=== PATIENT | male | born 1985 | race Caucasian/White ===

== ENCOUNTER 2017-03-30 23:25 | Emergency (ER) | payer OTHER ==
[2017-03-30] MEDS ORDERED: Sodium Chloride 0.9% 1,000 ML IV ONE (23:47)
[2017-03-30] MEDS ORDERED: Albuterol/Ipratropium 3.0-0.5 MG/3 ML Neb Soln NEB ONE (23:47)
[2017-03-30] MEDS ORDERED: methylPREDNISolone Sodium Succinate 125 MG/2 ML SDV IVPUSH ONE (23:47)
--- NOTE | 2017-03-30 23:48 | EDM.PDOC ---
ED HISTORY OF PRESENT ILLNESS - General Chief Complaint: Respiratory Problem Stated Complaint: PT HAS DIFFICULTY BREATHING Time Seen by Provider: 03/30/17 23:48 Source of Information: Reports: Patient - History of Present Illness INITIAL COMMENTS - FREE TEXT/NARRATIVE: HISTORY AND PHYSICAL: History of present illness: [] Patient presents with 5 days of cough and shortness of breath, intermittent wheeze generally small in one to 2 packs of cigarettes daily over the last week he has cut down to half a pack no fever nausea vomiting chills sweats no chest pain headache dizziness or palpitation no bowel or urine symptoms No history of asthma Review of systems: As per history of present illness and below otherwise all systems reviewed and negative. Past medical history: As per history of present illness and as reviewed below otherwise noncontributory. Surgical history: As per history of present illness and as reviewed below otherwise noncontributory. Social history: No reported history of drug or alcohol abuse. Family history: As per history of present illness and as reviewed below otherwise noncontributory. Physical exam: HEENT: Atraumatic, normocephalic, pupils reactive, negative for conjunctival pallor or scleral icterus, mucous membranes moist, throat clear, neck supple, nontender, trachea midline. Lungs: Clear to auscultation, breath sounds equal bilaterally, chest nontender. Heart: S1S2, regular, negative for clicks, rubs, or JVD. Abdomen: Soft, nondistended, nontender. Negative for masses or hepatosplenomegaly. Negative for costovertebral tenderness. Pelvis: Stable nontender. Genitourinary: Deferred. Rectal: Deferred. Extremities: Atraumatic, negative for cords or calf pain. Neurovascular unremarkable. Neuro: Awake, alert, oriented. Cranial nerves II through XII unremarkable. Cerebellum unremarkable. Motor and sensory unremarkable throughout. Exam nonfocal. Diagnostics: [] Lab as below Chest 2 views Therapeutics: [] Liter normal saline bolus Solu-Medrol 125 mg IV DuoNeb Azithromycin 500 milligrams by mouth now and daily prescription for #6 tabs HFA Medrol Dosepak Impression: [] Acute bronchitis Definitive disposition and diagnosis as appropriate pending reevaluation and review of above. - Related Data Allergies/ADRs: Allergies Allergy/AdvReac Type Severity Reaction Status Date / Time No Known Allergies Allergy Verified 11/23/14 19:32 Home Meds: Home Meds . [No Known Home Meds] 03/30/17 [History] Past Medical History - Past Health History Medical/Surgical History: Denies Medical/Surgical History Social & Family History - Tobacco Use Smoking Status *Q: Current Every Day Smoker Years of Tobacco use: 8 Packs/Tins Daily: 0.2 - Caffeine Use Caffeine Use: Reports: Other - Alcohol Use Days Per Week of Alcohol Use: 0 - Recreational Drug Use Recreational Drug Use: No ED ROS GENERAL - Review of Systems Review Of Systems: ROS reveals no pertinent complaints other than HPI. ED EXAM, GENERAL - Physical Exam Exam: See Below Course - Vital Signs Last Recorded V/S: Last Vital Signs Temp 36.2 C 03/30/17 23:40 Pulse 115 H 03/30/17 23:40 Resp 22 H 03/30/17 23:40 BP 127/58 L 03/30/17 23:40 Pulse Ox 94 L 03/30/17 23:40 - Orders/Labs/Meds Orders: Active Orders 24 hr Category Date Time Status RT Aerosol Therapy [RC] ASDIRECTED Care 03/30/17 23:47 Active Chest 2V [CR] Stat Exams 03/30/17 23:47 Taken COMPREHENSIVE METABOLIC PN,CMP [CHEM] Stat Lab 03/30/17 23:55 Received Azithromycin [Zithromax] Med 03/31/17 00:48 Stat 500 mg PO NOW STA Labs: Laboratory Tests 03/30/17 Range/Units 23:55 WBC 9.00 (4.0-11.0) K/uL RBC 4.89 (4.50-5.90) M/uL Hgb 14.7 (13.0-17.0) g/dL Hct 42.5 (38.0-50.0) % MCV 86.9 (80.0-98.0) fL MCH 30.1 (27.0-32.0) pg MCHC 34.6 (31.0-37.0) g/dL RDW Std Deviation 40.7 (28.0-62.0) fl RDW Coeff of Robert 13 (11.0-15.0) % Plt Count 186 (150-400) K/uL MPV 11.40 (7.40-12.00) fL Neut % (Auto) 69.2 (48.0-80.0) % Lymph % (Auto) 14.9 L (16.0-40.0) % [place] % (Auto) 14.6 (0.0-15.0) % Eos % (Auto) 0.9 (0.0-7.0) % Baso % (Auto) 0.4 (0.0-1.5) % Neut # (Auto) 6.2 H (1.4-5.7) K/uL Lymph # (Auto) 1.3 (0.6-2.4) K/uL [place] # (Auto) 1.3 H (0.0-0.8) K/uL Eos # (Auto) 0.1 (0.0-0.7) K/uL Baso # (Auto) 0.0 (0.0-0.1) K/uL Nucleated RBC % 0.0 /100WBC Nucleated RBCs # 0 K/uL Meds: Medications Discontinued Medications Generic Name Dose Route Start Last Admin Trade Name Freq PRN Reason Stop Dose Admin Albuterol/Ipratropium 3 ml 03/30/17 23:47 03/31/17 00:08 Duoneb 3.0-0.5 Mg/3 Ml NEB 03/30/17 23:48 3 ml ONETIME ONE Administration Sodium Chloride 1,000 mls @ 999 mls/hr 03/30/17 23:47 03/31/17 00:08 Normal Saline IV 03/31/17 00:47 999 mls/hr STAT ONE Administration Methylprednisolone Sodium Succinate 125 mg 03/30/17 23:47 03/31/17 00:08 Solu-Medrol IVPUSH 03/30/17 23:48 125 mg ONETIME ONE Administration Departure - Departure Time of Disposition: 00:49 Disposition: Home, Self-Care 01 Condition: good Clinical Impression: Acute bronchitis Forms: ED Department Discharge Additional Instructions: Medication as prescribed Return if symptoms persist or worsen despite treatment Followup with primary care in 2 weeks sooner as needed The following information is given to patients seen in the emergency department who are being discharged to home. This information is to outline your options for follow-up care. We provide all patients seen in our emergency department with a follow-up referral. The need for follow-up, as well as the timing and circumstances, are variable depending upon the specifics of your emergency department visit. If you don't have a primary care physician on staff, we will provide you with a referral. We always advise you to contact your personal physician following an emergency department visit to inform them of the circumstance of the visit and for follow-up with them and/or the need for any referrals to a consulting specialist. The emergency department will also refer you to a specialist when appropriate. This referral assures that you have the opportunity for follow-up care with a specialist. All of these measure are taken in an effort to provide you with optimal care, which includes your follow-up. Under all circumstances we always encourage you to contact your private physician who remains a resource for coordinating your care. When calling for follow-up care, please make the office aware that this follow-up is from your recent emergency room visit. If for any reason you are refused follow-up, please contact the [facility] emergency department at and asked to speak to the emergency department charge nurse. - My Orders Last 24 Hours: My Active Orders 03/30/17 23:47 RT Aerosol Therapy [RC] ASDIRECTED Chest 2V [CR] Stat 03/30/17 23:55 COMPREHENSIVE METABOLIC PN,CMP [CHEM] Stat 03/31/17 00:48 Azithromycin [Zithromax] 500 mg PO NOW STA - Assessment/Plan Last 24 Hours: My Active Orders 03/30/17 23:47 RT Aerosol Therapy [RC] ASDIRECTED Chest 2V [CR] Stat 03/30/17 23:55 COMPREHENSIVE METABOLIC PN,CMP [CHEM] Stat 03/31/17 00:48 Azithromycin [Zithromax] 500 mg PO NOW STA
[2017-03-31] MEDS ORDERED: Azithromycin 250 MG Tab PO STA (00:48)
[2017-03-31 00:55] LABS: CHLORIDE,CL 105 mmol/L (98-110); SODIUM,NA 140 mmol/L (136-146)
[2017-03-31 01:01] VITALS: BP 127/58
--- NOTE | 2017-03-31 15:37 | CR ---
EXAM DATE: 03/30/17 PATIENT'S AGE: 31 Patient: JOHNY LAZCANO Facility: [place], [place] Site . Site : 1985 Study: XRay Chest [id number]/2/2017 12:33:10 AM Ordering Physician: Doctor Srinivasan Final Report: INDICATION: SOB x 5 days TECHNIQUE: Chest radiograph 2 views COMPARISON: None FINDINGS: Cardiovascular and mediastinum: The cardiac silhouette is normal in appearance and size. Mediastinum is within normal limits. Lungs and pleural spaces: Both lungs are unremarkable in appearance. No sign of pleural effusion. No pneumothorax is seen. Bones and soft tissues: No significant findings. IMPRESSION: 1. No acute cardiopulmonary disease seen. Dictated by: Bubba Gallegos MD @ 03/31/2017 00:46:15 (Electronic Signature) Report Signed by Proxy. HERK[facility]IAL HOSPITALAngelita
== END 2017-03-31 01:25 | disposition home or self-care (01) ==
LOC: MW.ED 23:25
DX: J20.9 Acute bronchitis, unspecified (principal); F17.210 Nicotine dependence, cigarettes, uncomplicated
CPT/HCPCS: 36415; 71020; 80053; 85025; 96361; 96374; 99283; A9270; J2930; J7040; 99284

== ENCOUNTER 2017-07-20 09:47 | Emergency (ER) | payer OTHER ==
--- NOTE | 2017-07-20 10:14 | EDM.PDOC ---
ED HPI GENERAL MEDICAL PROBLEM - General Chief Complaint: Lower Extremity Injury/Pain Stated Complaint: TWISTED LT ANKLE Time Seen by Provider: 07/20/17 10:10 Source of Information: Reports: Patient History Limitations: Reports: No Limitations - History of Present Illness INITIAL COMMENTS - FREE TEXT/NARRATIVE: HISTORY AND PHYSICAL: [32-year-old male complaining of left ankle pain] History of Present Illness: [Patient is a 32-year-old male presenting to the emergency room today with complaints of left ankle pain after twisting it this morning. States he was walking and lost his balance and twisted his ankle it has progressively become more painful and swollen. Denies any numbness or tingling to the lower extremity. Able to ambulate with pain into the emergency room. Denies any previous injury to that extremity.] Review of Systems: As per history of present illness and below otherwise all systems reviewed and negative. Past medical history: As per history of present illness and as reviewed below otherwise noncontributory. Surgical history: As per history of present illness and as reviewed below otherwise noncontributory. Social history: No reported history of drug or alcohol abuse. Family history: As per history of present illness and as reviewed below otherwise noncontributory. Physical exam: Gen.: Patient is a nontoxic appearing 32-year-old male. Able to speak in full sentences without shortness of breath. Alert and oriented. Answers questions appropriately HEENT: Atraumatic, normocehpalic, pupils reactive, negative for conjunctival pallor or scleral icterus, mucous membranes moist, throat clear, neck supple, nontender, trachea midline. Lungs: Clear to auscultation, breath sounds equal bilaterally, chest non tender. Heart: S1S2, regular, negative for clicks, rubs, or JVD. Abdomen: Soft, nondistended, nontender. Negative for masses or hepatossplenmegaly. Negative for costovertebral tenderness. Pelvis: Stable nontender. Genitourinary: Deferred. Rectal: Deferred Extremities: Left lateral ankle swelling over the malleolus with tenderness to palpation. Strong pedal pulses bilaterally. Full range of motion to the affected extremity. Able to flex and extend active extremity. Skin is warm and dry egative for cords or calf pain. Neurovascular unremarkable. Neuro: Awake, alert, oriented. Cranial nerves II through XII unremarkable. Cerebellum unremarkable. Motor and sensory unremarkable throughout. Exam nonfocal. Diagnostics: [X-ray left ankle] Therapeutics: [Ice applied in the ER] Impression: [Left lower extremity injury] Plan: [1. These were air splints and use crutches as directed as discussed 2. Please taken [id number] NSAID such as ibuprofen or Aleve as directed on the bottle, and as needed for pain and swelling 3. Rest, ice, and elevate the extremity. 4. Follow up with your primary care provider or orthopedics in 1-2 days as needed as discussed.] Definitive disposition and diagnosis as appropriate pending reevaluation and review of above. Onset: Today Onset Date: 07/20/17 Location: Reports: Lower Extremity, Left Quality: Reports: Pressure, Throbbing Severity: Moderate Improves with: Reports: Cold Therapy (Ice pack applied in triage), Rest Worsens with: Reports: Other (Weightbearing), Movement Associated Symptoms: Reports: No Other Symptoms Left Ankle Pain Score (Numeric/FACES): 7 - Related Data Allergies Allergy/AdvReac Type Severity Reaction Status Date / Time No Known Allergies Allergy Verified 11/23/14 19:32 Home Meds: Home Meds Acetaminophen [Tylenol] 325 mg PO PRN 07/20/17 [History] Naproxen Sodium [Aleve] 220 mg PRN 07/20/17 [History] Past Medical History - Past Health History Medical/Surgical History: Denies Medical/Surgical History Social & Family History - Family History Family Medical History: Noncontributory - Tobacco Use Smoking Status *Q: Current Every Day Smoker Years of Tobacco use: 8 Packs/Tins Daily: 0.2 - Caffeine Use Caffeine Use: Reports: Other - Alcohol Use Days Per Week of Alcohol Use: 0 - Recreational Drug Use Recreational Drug Use: No Review of Systems - Review of Systems Review Of Systems: ROS reveals no pertinent complaints other than HPI. ED EXAM, GENERAL - Physical Exam Exam: See Below (See dictation) Course - Vital Signs Last Recorded V/S: Last Vital Signs Temp 36.3 C 07/20/17 09:56 Pulse 88 07/20/17 09:56 Resp 18 07/20/17 09:56 BP 132/83 07/20/17 09:56 Pulse Ox 98 07/20/17 09:56 - Orders/Labs/Meds Orders: Active Orders 24 hr Category Date Time Status DME for Discharge [COMM] Stat Oth 07/20/17 11:13 Ordered Departure - Departure Time of Disposition: 11:16 Disposition: Home, Self-Care 01 Condition: Good Clinical Impression: Lower extremity injury Qualifiers: Encounter type: initial encounter Laterality: left Qualified Code(s): S89.92XA - Unspecified injury of left lower leg, initial encounter - Discharge Information Instructions: Ankle Sprain, [id number] Referrals: Calderon Matthew MD [Primary Care Provider] - Forms: ED Department Discharge Additional Instructions: The following information is given to patients seen in the emergency department who are being discharged to home. This information is to outline your options for follow-up care. We provide all patients seen in our emergency department with a follow-up referral. The need for follow-up, as well as the timing and circumstances, are variable depending upon the specifics of your emergency department visit. If you don't have a primary care physician on staff, we will provide you with a referral. We always advise you to contact your personal physician following an emergency department visit to inform them of the circumstance of the visit and for follow-up with them and/or the need for any referrals to a consulting specialist. The emergency department will also refer you to a specialist when appropriate. This referral assures that you have the opportunity for followup care with a specialist. All of these measure are taken in an effort to provide you with optimal care, which includes your followup. Under all circumstances we always encourage you to contact your private physician who remains a resource for coordinating your care. When calling for followup care, please make the office aware that this follow-up is from your recent emergency room visit. If for any reason you are refused follow-up, please contact the [facility] emergency department at and asked to speak to the emergency department charge nurse. [facility] [address] [place] [id number] 1. These were air splints and use crutches as directed as discussed 2. Please taken [id number] NSAID such as ibuprofen or Aleve as directed on the bottle, and as needed for pain and swelling. May take prescribed pain medication, [place] 5/325 (dispense #5) as directed on the bottle for nighttime use only. 3. Rest, ice, and elevate the extremity. 4. Follow up with your primary care provider or orthopedics in 1-2 days as needed as discussed. - My Orders Last 24 Hours: My Active Orders 07/20/17 11:13 DME for Discharge [COMM] Stat - Assessment/Plan Last 24 Hours: My Active Orders 07/20/17 11:13 DME for Discharge [COMM] Stat
--- NOTE | 2017-07-20 10:59 | CR ---
EXAMINATION: Left ankle HISTORY: Swelling COMPARISON: None TECHNIQUE: 3 views FINDINGS/IMPRESSION: There is no acute osseous abnormality, dislocation, or fracture. Mild anterior and lateral soft tissue swelling is noted. Bone mineralization, ankle mortise, and joint spaces are otherwise preserved.
[2017-07-20 11:45] VITALS: BP 120/70
== END 2017-07-20 11:40 | disposition home or self-care (01) ==
LOC: MW.ED 09:47
DX: S89.92XA Unspecified injury of left lower leg, initial encounter (principal); F17.210 Nicotine dependence, cigarettes, uncomplicated; X50.1XXA Overexertion from prolonged static or awkward postures, initial encounter
CPT/HCPCS: 73610-26-LT; 73610-LT; 99283

== ENCOUNTER 2018-05-23 20:29 | Emergency (ER) | payer OTHER ==
[2018-05-23 20:54] VITALS: BP 131/87
[2018-05-23] MEDS ORDERED: Ketorolac 60 MG/2 ML SDV IM ONE (22:20)
--- NOTE | 2018-05-23 22:23 | EDM.PDOC ---
ED HPI GENERAL MEDICAL PROBLEM - General Chief Complaint: Lower Extremity Injury/Pain Stated Complaint: PAIN LT ANKLE/BACK PAIN Time Seen by Provider: 05/23/18 22:17 - History of Present Illness INITIAL COMMENTS - FREE TEXT/NARRATIVE: HISTORY AND PHYSICAL: History of present illness: The patient is a 32-year-old male who presents with complaints of pain to his lateral left foot and ankle after he rolled it going down the stairs and also complains of some lower back pain strain as he tried to catch himself from falling. The patient says he did not fall and hit his back head pass out or blackout and only has musculoskeletal discomfort from twisting and trying to prevent a fall. Prior to these events he was in his usual state of good health with no systemic complaints. He has no neurosensory changes in his foot and complains of pain mostly at the lateral foot and the distal lateral ankle on the left. His proximal leg knee and hip are without discomfort. The patient only took an Excedrin prior to coming here Review of systems: As per history of present illness and below otherwise all systems reviewed and negative. Past medical history: As per history of present illness and as reviewed below otherwise noncontributory. Surgical history: As per history of present illness and as reviewed below otherwise noncontributory. Social history: No reported history of drug or alcohol abuse. Family history: As per history of present illness and as reviewed below otherwise noncontributory. Physical exam: : Well-developed well-nourished mildly overweight man is nontoxic and vital signs are reviewed by me HEENT: Atraumatic, normocephalic, no midline step-offs tenderness defects of the cervical spine negative for conjunctival pallor or scleral icterus, mucous membranes moist, throat clear, neck supple, nontender, trachea midline. Lungs: Clear to auscultation, breath sounds equal bilaterally, chest nontender. Heart: S1S2, regular rate and rhythm no overt murmurs Abdomen: Soft, nondistended, nontender. NABS Pelvis: Stable nontender. No lateral hip tenderness on the left Genitourinary: Deferred. Rectal: Deferred. Extremities: Atraumatic full range of motion of all extremities with the exception of the lateral left foot with there is diffuse soft tissue swelling extending up into the ankle without ecchymosis palpable bony deformity. There is tenderness in this region. Neurovascular is intact. The proximal leg knee hip and thigh are intact without tenderness and the legs are, negative for cords or calf pain. Neurovascular unremarkable. Neuro: Awake, alert, oriented. Cranial nerves II through XII unremarkable. Cerebellum unremarkable. Motor and sensory unremarkable throughout. Exam nonfocal. Back: There are no midline step-offs tenderness defects of the thoracic or lumbar spine and there is some mild paraspinal tenderness on the left Diagnostics: X-ray of the left foot and ankle Therapeutics: Toradol crutches and cam boot Impression: Left foot/ankle injury, lumbar back strain status post fall Definitive disposition and diagnosis as appropriate pending reevaluation and review of above. Treatments GOLD PLATER: Reports: Acetaminophen left foot Pain Score (Numeric/FACES): 6 - Related Data Allergies Allergy/AdvReac Type Severity Reaction Status Date / Time No Known Allergies Allergy Verified 05/23/18 20:54 Home Meds: Home Meds . [No Known Home Meds] 05/23/18 [History] Past Medical History - Past Health History Medical/Surgical History: Denies Medical/Surgical History Musculoskeletal History: Reports: Other (See Below) Other Musculoskeletal History: tendonitis, R shoulder Dermatologic History: Reports: Other (See Below) Other Dermatologic History: sutures L wrist/base of thumb Social & Family History - Family History Family Medical History: Noncontributory - Tobacco Use Smoking Status *Q: Current Every Day Smoker Years of Tobacco use: 14 Packs/Tins Daily: 1 - Caffeine Use Caffeine Use: Reports: Other - Recreational Drug Use Recreational Drug Use: No Review of Systems - Review of Systems Review Of Systems: ROS reveals no pertinent complaints other than HPI. ED EXAM, GENERAL - Physical Exam Exam: See Below (See dictation) Course - Vital Signs Last Recorded V/S: Last Vital Signs Temp 37.0 C 05/23/18 20:29 Pulse 80 05/23/18 20:29 Resp 16 05/23/18 20:29 BP 131/87 05/23/18 20:29 Pulse Ox 97 05/23/18 20:29 - Orders/Labs/Meds Orders: Active Orders 24 hr Category Date Time Status Ankle 2V Lt [CR] Stat Exams 05/23/18 22:20 Taken Foot Comp Min 3V Lt [CR] Stat Exams 05/23/18 22:20 Taken DME for Discharge [COMM] Stat Oth 05/23/18 23:47 Ordered Meds: Medications Discontinued Medications Generic Name Dose Route Start Last Admin Trade Name Servando PRN Reason Stop Dose Admin Ketorolac Tromethamine 60 mg 05/23/18 22:20 05/23/18 22:39 Toradol IM 05/23/18 22:21 60 mg ONETIME ONE Administration Departure - Departure Time of Disposition: 23:48 Disposition: Home, Self-Care 01 Condition: Good Clinical Impression: Back strain Ankle sprain Qualifiers: Encounter type: initial encounter Involved ligament of ankle: unspecified ligament Laterality: left Qualified Code(s): S93.402A - Sprain of unspecified ligament of left ankle, initial encounter Foot contusion Qualifiers: Encounter type: initial encounter Laterality: left Qualified Code(s): S90.32XA - Contusion of left foot, initial encounter - Discharge Information Referrals: Calderon Matthew MD [Primary Care Provider] - Forms: ED Department Discharge Additional Instructions: The following information is given to patients seen in the emergency department who are being discharged to home. This information is to outline your options for follow-up care. We provide all patients seen in our emergency department with a follow-up referral. The need for follow-up, as well as the timing and circumstances, are variable depending upon the specifics of your emergency department visit. If you don't have a primary care physician on staff, we will provide you with a referral. We always advise you to contact your personal physician following an emergency department visit to inform them of the circumstance of the visit and for follow-up with them and/or the need for any referrals to a consulting specialist. The emergency department will also refer you to a specialist when appropriate. This referral assures that you have the opportunity for followup care with a specialist. All of these measure are taken in an effort to provide you with optimal care, which includes your followup. Under all circumstances we always encourage you to contact your private physician who remains a resource for coordinating your care. When calling for followup care, please make the office aware that this follow-up is from your recent emergency room visit. If for any reason you are refused follow-up, please contact the [facility] emergency department at and ask to speak to the emergency department charge nurse. [facility]--Orthopedic clinic Professional [address] [address] Ice and elevate the area and use [id number] ibuprofen for pain and inflammation. He is the tramadol as needed but only take at home. Wear the cam walking boot and use crutches at all times and do not weight-bear until you're followed up in the clinic. Call the clinic for follow-up first thing in the morning and return to ER as needed and as discussed - My Orders Last 24 Hours: My Active Orders 05/23/18 22:20 Ankle 2V Lt [CR] Stat Foot Comp Min 3V Lt [CR] Stat 05/23/18 23:47 DME for Discharge [COMM] Stat - Assessment/Plan Last 24 Hours: My Active Orders 05/23/18 22:20 Ankle 2V Lt [CR] Stat Foot Comp Min 3V Lt [CR] Stat 05/23/18 23:47 DME for Discharge [COMM] Stat
--- NOTE | 2018-05-24 16:56 | CR ---
EXAM DATE: 05/23/18 PATIENT'S AGE: 32 Patient: JOHNY LAZCANO Facility: [place], [place] Site . Site : 1985 Study: XRay Extremity Left ankle [id number]/24/2018 10:54:09 PM Ordering Physician: Abdirizak Larry Final Report: INDICATION: Twisted ankle going down stairs TECHNIQUE: Ankle radiograph 2 views left COMPARISON: None FINDINGS: Bones: On ankle mortise view, there is a faint lucency over the medial aspect of the talus. Joints: See above. No significant ankle effusion is seen. Soft tissue: The [place] fat pad and the Achilles` tendon is normal in appearance. No radiopaque foreign bodies are seen. IMPRESSION: 1. On ankle mortise view, there is a faint lucency over the medial aspect of the talus. Correlation with physical exam for focal tenderness in this region is recommended to exclude an acute fracture. Dictated by Bubba Gallegos MD @ 05/23/2018 11:04:28 PM Dictated by: Bubba Gallegos MD @ 05/23/2018 23:04:31 (Electronic Signature) Report Signed by Proxy. [facility]
--- NOTE | 2018-05-24 16:58 | CR ---
EXAM DATE: 05/23/18 PATIENT'S AGE: 32 Patient: JOHNY LAZCANO Facility: [place], [place] Site . Site : 1985 Study: XRay Extremity Left foot [id number]/24/2018 10:56:25 PM Ordering Physician: Abdirizak Larry Final Report: INDICATION: twisted ankle going down stairs TECHNIQUE: Three views of the left foot COMPARISON: None FINDINGS: Bones: No fractures or bone lesions. Joint spaces: Unremarkable. Soft tissues: Unremarkable. IMPRESSION: No acute bony abnormality Dictated by Justino John MD @ 05/23/2018 11:07:25 PM Dictated by: Justino John MD @ 05/23/2018 23:07:38 (Electronic Signature) Report Signed by Proxy. [facility]
== END 2018-05-24 | disposition home or self-care (01) ==
LOC: MW.ED 20:29
DX: S93.402A Sprain of unspecified ligament of left ankle, initial encounter (principal); S39.012A Strain of muscle, fascia and tendon of lower back, initial encounter; S90.32XA Contusion of left foot, initial encounter; F17.210 Nicotine dependence, cigarettes, uncomplicated; W10.9XXA Fall (on) (from) unspecified stairs and steps, initial encounter
CPT/HCPCS: 73600; 73630; 96372; 99283; J1885

== ENCOUNTER 2019-08-20 23:44 | Emergency (ER) | payer BC, OTHER ==
[2019-08-21] MEDS ORDERED: Sodium Chloride 0.9% 1,000 ML IV ONE (00:12)
[2019-08-21] MEDS ORDERED: Ketorolac 30 MG/ML SDV IVPUSH ONE (00:12)
[2019-08-21] MEDS ORDERED: Sodium Chloride 0.9% 2.5 ML Syringe FLUSH PRN (00:12)
[2019-08-21] MEDS ORDERED: Acetaminophen 500 MG Tab PO ONE (00:12)
[2019-08-21] MEDS ORDERED: Sodium Chloride 0.9% 10 ML Syringe FLUSH PRN (00:12)
[2019-08-21] MEDS ORDERED: Ondansetron 4 MG/2 ML SDV IVPUSH ONE (00:12)
--- NOTE | 2019-08-21 00:16 | EDM.PDOC ---
ED HPI GENERAL MEDICAL PROBLEM - General Chief Complaint: General Stated Complaint: FATIGUE NUMBNESS IN FINGERTIPS Time Seen by Provider: 08/20/19 23:52 - History of Present Illness INITIAL COMMENTS - FREE TEXT/NARRATIVE: HISTORY AND PHYSICAL: History of present illness: The patient is a healthy 34-year-old male who follows at [facility] and presents with a less than 24-hour history of fatigue malaise chills and tingling in his fingertips and feeling hot. The patient did not take his temperature at home and was unaware that he was febrile as he was 102.6 here. He says he has been sleeping all day because he has felt very rundown and fatigued and he has hydrated but not anymore than usual. He ate his meals without vomiting but did have a runny stool. He says he feels nauseated now but earlier did not. He's had no cough chest pain or shortness of breath no flank pain no urinary complaints and no ear pain sinus pain or congestion. He says that his whole body feels achy and he doesn't have a specific head neck or back pain. The patient did not take any cjld-ona-cavkomy meds prior to coming here Review of systems: As per history of present illness and below otherwise all systems reviewed and negative. Past medical history: As per history of present illness and as reviewed below otherwise noncontributory. Surgical history: As per history of present illness and as reviewed below otherwise noncontributory. Social history: No reported history of drug or alcohol abuse. Family history: As per history of present illness and as reviewed below otherwise noncontributory. Physical exam: Dental: Well-developed well-nourished man who is nontoxic and ambulated into the ED. Vital signs are noted by me HEENT: Atraumatic, normocephalic, pupils reactive, negative for conjunctival pallor or scleral icterus, mucous membranes moist, throat clear of exudates but the posterior oropharynx is reddened, neck supple, nontender, trachea midline. There is no cervical adenopathy or nuchal rigidity Lungs: Clear to auscultation, breath sounds equal bilaterally, chest nontender. No wheezing stridor or work of breathing Heart: S1S2, regular rhythm and tachycardic rate of my evaluation but no overt murmurs Abdomen: Soft, nondistended, minimal diffuse lower abdominal tenderness without rebound or guarding and bowel sounds are normoactive Negative for masses or hepatosplenomegaly. Negative for costovertebral tenderness. Pelvis: Stable nontender. Genitourinary: Deferred. Rectal: Deferred. Extremities: Atraumatic, negative for cords or calf pain. Neurovascular unremarkable. Neuro: Awake, alert, oriented. Cranial nerves II through XII unremarkable. Cerebellum unremarkable. Motor and sensory unremarkable throughout. Exam nonfocal. Skin: Warm to touch but turgor is normal and no evidence of any overt rashes or lesions Diagnostics: CBC CMP lactic acid UA with reflex rapid strep influenza chest x-ray Therapeutics: IV fluids Tylenol Toradol Patient's current temperature is 98.7 and he is aware of all testing results with negative findings for the cause of his fever. I've advised him to hydrate rest and use [id number] Tylenol and ibuprofen to manage his fevers and to follow up with Dr. Matthew in the clinic Impression: Fever, fatigue malaise and myalgias Definitive disposition and diagnosis as appropriate pending reevaluation and review of above. - Related Data Allergies Allergy/AdvReac Type Severity Reaction Status Date / Time No Known Allergies Allergy Verified 08/21/19 00:05 Home Meds: Home Meds . [No Known Home Meds] 05/23/18 [History] Past Medical History - Past Health History Medical/Surgical History: Denies Medical/Surgical History HEENT History: Reports: Impaired Vision, Other (See Below) Other HEENT History: wears glasses Musculoskeletal History: Reports: Other (See Below) Other Musculoskeletal History: tendonitis, R shoulder Dermatologic History: Reports: Other (See Below) Other Dermatologic History: sutures L wrist/base of thumb Social & Family History - Family History Family Medical History: Noncontributory - Tobacco Use Smoking Status *Q: Never Smoker - Caffeine Use Caffeine Use: Reports: Other - Recreational Drug Use Recreational Drug Use: No ED ROS GENERAL - Review of Systems Review Of Systems: ROS reveals no pertinent complaints other than HPI. ED EXAM, GENERAL - Physical Exam Exam: See Below (see dictation) Course - Vital Signs Last Recorded V/S: Last Vital Signs Temp 37.1 C 08/21/19 01:21 Pulse 97 08/21/19 01:21 Resp 17 08/21/19 01:21 BP 119/64 08/21/19 01:21 Pulse Ox 96 08/21/19 01:21 - Orders/Labs/Meds Orders: Active Orders 24 hr Category Date Time Status CULTURE STREP A CONFIRMATION [] Stat Lab 08/21/19 00:36 Results STREP SCRN A RAPID W CULT CONF [] Stat Lab 08/21/19 00:36 Results Sodium Chloride 0.9% [Saline Flush] Med 08/21/19 00:12 Active 10 ml FLUSH ASDIRECTED PRN Sodium Chloride 0.9% [Saline Flush] Med 08/21/19 00:12 Active 2.5 ml FLUSH ASDIRECTED PRN Saline Lock Insert [OM.PC] Stat Oth 08/21/19 00:12 Ordered Medication Orders Sodium Chloride (Saline Flush) 10 ml FLUSH ASDIRECTED PRN PRN Reason: Keep Vein Open Sodium Chloride (Saline Flush) 2.5 ml FLUSH ASDIRECTED PRN PRN Reason: Keep Vein Open Labs: Laboratory Tests 08/21/19 08/21/19 08/21/19 Range/Units 00:27 00:27 00:27 WBC 10.16 (4.0-11.0) K/uL RBC 4.95 (4.50-5.90) M/uL Hgb 14.9 (13.0-17.0) g/dL Hct 42.5 (38.0-50.0) % MCV 85.9 (80.0-98.0) fL MCH 30.1 (27.0-32.0) pg MCHC 35.1 (31.0-37.0) g/dL RDW Std Deviation 39.0 (28.0-62.0) fl RDW Coeff of Robert 13 (11.0-15.0) % Plt Count 153 (150-400) K/uL MPV 10.70 (7.40-12.00) fL Neut % (Auto) 84.1 H (48.0-80.0) % Lymph % (Auto) 7.4 L (16.0-40.0) % [place] % (Auto) 7.6 (0.0-15.0) % Eos % (Auto) 0.8 (0.0-7.0) % Baso % (Auto) 0.1 (0.0-1.5) % Neut # (Auto) 8.6 H (1.4-5.7) K/uL Lymph # (Auto) 0.8 (0.6-2.4) K/uL [place] # (Auto) 0.8 (0.0-0.8) K/uL Eos # (Auto) 0.1 (0.0-0.7) K/uL Baso # (Auto) 0.0 (0.0-0.1) K/uL Lactate 2.0 (0.20-2.00) mmol/L Sodium 138 (136-148) mmol/L Potassium 4.1 (3.5-5.1) mmol/L Chloride 103 (98-107) mmol/L Carbon Dioxide 27.2 (21.0-32.0) mmol/L BUN 15 (7.0-18.0) mg/dL Creatinine 1.1 (0.8-1.3) mg/dL Est Cr Clr Drug Dosing 101.73 mL/min Estimated GFR (MDRD) > 60.0 ml/min Glucose 101 (74-106) mg/dL Calcium 8.4 L (8.5-10.1) mg/dL Total Bilirubin 0.8 (0.2-1.0) mg/dL AST 26 (15-37) IU/L ALT 32 (14-63) IU/L Alkaline Phosphatase 73 (46-116) U/L Total Protein 7.0 (6.4-8.2) g/dL Albumin 3.8 (3.4-5.0) g/dL Globulin 3.2 (2.6-4.0) g/dL Albumin/Globulin Ratio 1.2 (0.9-1.6) Urine Color Urine Appearance Urine pH (5.0-8.0) Ur Specific [place] (1.001-1.035) Urine Protein (NEGATIVE) mg/dL Urine Glucose (UA) (NEGATIVE) mg/dL Urine Ketones (NEGATIVE) mg/dL Urine Occult Blood (NEGATIVE) Urine Nitrite (NEGATIVE) Urine Bilirubin (NEGATIVE) Urine Urobilinogen (<2.0) EU/dL Ur Leukocyte Esterase (NEGATIVE) 08/21/19 Range/Units 00:33 WBC (4.0-11.0) K/uL RBC (4.50-5.90) M/uL Hgb (13.0-17.0) g/dL Hct (38.0-50.0) % MCV (80.0-98.0) fL MCH (27.0-32.0) pg MCHC (31.0-37.0) g/dL RDW Std Deviation (28.0-62.0) fl RDW Coeff of Robert (11.0-15.0) % Plt Count (150-400) K/uL MPV (7.40-12.00) fL Neut % (Auto) (48.0-80.0) % Lymph % (Auto) (16.0-40.0) % [place] % (Auto) (0.0-15.0) % Eos % (Auto) (0.0-7.0) % Baso % (Auto) (0.0-1.5) % Neut # (Auto) (1.4-5.7) K/uL Lymph # (Auto) (0.6-2.4) K/uL [place] # (Auto) (0.0-0.8) K/uL Eos # (Auto) (0.0-0.7) K/uL Baso # (Auto) (0.0-0.1) K/uL Lactate (0.20-2.00) mmol/L Sodium (136-148) mmol/L Potassium (3.5-5.1) mmol/L Chloride (98-107) mmol/L Carbon Dioxide (21.0-32.0) mmol/L BUN (7.0-18.0) mg/dL Creatinine (0.8-1.3) mg/dL Est Cr Clr Drug Dosing mL/min Estimated GFR (MDRD) ml/min Glucose (74-106) mg/dL Calcium (8.5-10.1) mg/dL Total Bilirubin (0.2-1.0) mg/dL AST (15-37) IU/L ALT (14-63) IU/L Alkaline Phosphatase (46-116) U/L Total Protein (6.4-8.2) g/dL Albumin (3.4-5.0) g/dL Globulin (2.6-4.0) g/dL Albumin/Globulin Ratio (0.9-1.6) Urine Color YELLOW Urine Appearance CLEAR Urine pH 5.5 (5.0-8.0) Ur Specific [place] 1.025 (1.001-1.035) Urine Protein NEGATIVE (NEGATIVE) mg/dL Urine Glucose (UA) NEGATIVE (NEGATIVE) mg/dL Urine Ketones NEGATIVE (NEGATIVE) mg/dL Urine Occult Blood NEGATIVE (NEGATIVE) Urine Nitrite NEGATIVE (NEGATIVE) Urine Bilirubin NEGATIVE (NEGATIVE) Urine Urobilinogen 0.2 (<2.0) EU/dL Ur Leukocyte Esterase NEGATIVE (NEGATIVE) Meds: Medications Generic Name Dose Route Start Last Admin Trade Name Freq PRN Reason Stop Dose Admin Sodium Chloride 10 ml 08/21/19 00:12 Saline Flush FLUSH ASDIRECTED PRN Keep Vein Open Sodium Chloride 2.5 ml 08/21/19 00:12 Saline Flush FLUSH ASDIRECTED PRN Keep Vein Open Discontinued Medications Generic Name Dose Route Start Last Admin Trade Name Freq PRN Reason Stop Dose Admin Acetaminophen 1,000 mg 08/21/19 00:12 08/21/19 00:37 Tylenol Extra Strength PO 08/21/19 00:13 1,000 mg ONETIME ONE Administration Sodium Chloride 1,000 mls @ 999 mls/hr 08/21/19 00:12 08/21/19 00:34 Normal Saline IV 08/21/19 01:12 999 mls/hr STAT ONE Administration Ketorolac Tromethamine 30 mg 08/21/19 00:12 08/21/19 00:37 Toradol IVPUSH 08/21/19 00:13 30 mg ONETIME ONE Administration Ondansetron HCl 4 mg 08/21/19 00:12 08/21/19 00:35 Zofran IVPUSH 08/21/19 00:13 4 mg ONETIME ONE Administration Departure - Departure Time of Disposition: 01:28 Disposition: Home, Self-Care 01 Condition: Good Clinical Impression: Malaise and fatigue Fever Qualifiers: Fever type: unspecified Qualified Code(s): R50.9 - Fever, unspecified - Discharge Information Referrals: Calderon Matthew MD [Primary Care Provider] - Forms: ED Department Discharge Additional Instructions: The following information is given to patients seen in the emergency department who are being discharged to home. This information is to outline your options for follow-up care. We provide all patients seen in our emergency department with a follow-up referral. The need for follow-up, as well as the timing and circumstances, are variable depending upon the specifics of your emergency department visit. If you don't have a primary care physician on staff, we will provide you with a referral. We always advise you to contact your personal physician following an emergency department visit to inform them of the circumstance of the visit and for follow-up with them and/or the need for any referrals to a consulting specialist. The emergency department will also refer you to a specialist when appropriate. This referral assures that you have the opportunity for followup care with a specialist. All of these measure are taken in an effort to provide you with optimal care, which includes your followup. Under all circumstances we always encourage you to contact your private physician who remains a resource for coordinating your care. When calling for followup care, please make the office aware that this follow-up is from your recent emergency room visit. If for any reason you are refused follow-up, please contact the [facility] emergency department at and ask to speak to the emergency department charge nurse. [address] [place] [address] Please use [id number] Tylenol, 1000 mg or 2 extra strength, every 6 hours for fever and body aches and also add ibuprofen, 800 mg every 8 hours, as needed for the fever and body aches. Push hydration with electrolyte solutions and water as we discussed. Continue to monitor your symptoms and call and follow -up with Dr. Matthew or one of his associates at [facility] next week for reevaluation and further care. Return to ER as needed and as discussed - My Orders Last 24 Hours: My Active Orders 08/21/19 00:12 Sodium Chloride 0.9% [Saline Flush] 10 ml FLUSH ASDIRECTED PRN Sodium Chloride 0.9% [Saline Flush] 2.5 ml FLUSH ASDIRECTED PRN Saline Lock Insert [OM.PC] Stat 08/21/19 00:36 CULTURE STREP A CONFIRMATION [RM] Stat STREP SCRN A RAPID W CULT CONF [RM] Stat - Assessment/Plan Last 24 Hours: My Active Orders 08/21/19 00:12 Sodium Chloride 0.9% [Saline Flush] 10 ml FLUSH ASDIRECTED PRN Sodium Chloride 0.9% [Saline Flush] 2.5 ml FLUSH ASDIRECTED PRN Saline Lock Insert [OM.PC] Stat 08/21/19 00:36 CULTURE STREP A CONFIRMATION [RM] Stat STREP SCRN A RAPID W CULT CONF [RM] Stat
[2019-08-21 00:55] LABS: BLOOD UREA NITROGEN,BUN 15 mg/dL (7.0-18.0); CARBON DIOXIDE,CO2 27.2 mmol/L (21.0-32.0); CHLORIDE,CL 103 mmol/L (98-107); GLUCOSE RANDOM 101 mg/dL (74-106); POTASSIUM,K 4.1 mmol/L (3.5-5.1); SODIUM,NA 138 mmol/L (136-148)
--- NOTE | 2019-08-21 01:13 | CR ---
CHEST 2 VIEWS INDICATION: Fatigue IMPRESSION: Normal heart size and vascular pattern. Lungs are clear. No pneumothorax or pleural effusion. Dictated by Jose Daniel Isbell MD @ Aug 21 2019 1:12AM Signed by Dr. Jose Daniel Isbell @ Aug 21 2019 1:13AM
[2019-08-21 01:22] VITALS: BP 119/64; PULSE 97
== END 2019-08-21 01:40 | disposition home or self-care (01) ==
LOC: MW.ED 23:44
DX: R50.9 Fever, unspecified (principal); R53.81 Other malaise; R53.83 Other fatigue
CPT/HCPCS: 36415; 71046; 80053; 81003; 83605; 85025; 87081; 87804; 87880; 96361; 96374; 96375; 99283; A9270; J1885; J2405; J7040

== ENCOUNTER 2020-09-25 11:54 | Day surgery (SDC) | payer OTHER ==
[2020-09-25] MEDS ORDERED: Iopamidol 200-M 10 ML vial ITHECAL ONE (13:30)
[2020-09-25] MEDS ORDERED: Ropivacaine 0.5% 5 MG/ML 30 ML SDV INJECT ONE (13:30)
[2020-09-25] MEDS ORDERED: Betamethasone Acetate/Betamethasone Sod Phosphate 30 MG/5 ML MDV EPIDUR ONE (13:30)
[2020-09-25] MEDS ORDERED: Lidocaine 2% 5 ML SDV INJECT ONE (13:30)
--- NOTE | 2020-09-25 17:45 | OR ---
SURGEON: Shi Zheng D.O. DATE OF PROCEDURE: 09/25/2020 PRIMARY SURGEON: Shi Zheng DO ASSISTANTS: OR staff present: 1. Michael Brothers RN. 2. Usman Esparza RN. 3. Farhad Espinal RT. WOUND CLASS: I. PREOPERATIVE DIAGNOSES: 1. Thoracic spondylosis. 2. Thoracic degenerative disk disease. 3. Chronic thoracic back pain. POSTOPERATIVE DIAGNOSES: 1. Thoracic spondylosis. 2. Thoracic degenerative disk disease. 3. Chronic thoracic back pain. PROCEDURES PERFORMED: 1. Right T2 medial branch block. 2. Right T6 medial branch block. 3. Right T7 medial branch block. 4. Left T6 medial branch block. 5. Left T7 medial branch block. 6. Fluoroscopic guidance for needle placement. 7. Local with oral Valium for sedation. SCREENING QUESTIONS: The patient answered "No" to all the following questions: 1. Are you allergic to iodine, Betadine or latex? 2. Do you have a bleeding disorder? 3. Are you on anti-inflammatories or blood thinners? 4. Do you have any current local or systemic infections? MEDICAL NECESSITY: This is a patient with chronic low back pain who comes in for the above diagnostic procedure. This procedure is being performed in accordance with national guidelines written by the [employer]; please see medical necessity note in chart. DESCRIPTION OF PROCEDURE: The patient had the procedure thoroughly explained including risks, benefits and alternatives. Consent was signed in my clinic indicating understanding and willingness to proceed. The patient presented to [facility] and was escorted to the dressing room to disrobe and change into a hospital gown. Preoperative history and screening were performed by my nurse. Vital signs were taken and stable. The patient reported that Valium 10 milligrams was taken prior to the procedure. The patient was brought back to the procedure room and placed in the prone position on the procedure room table. A pillow was placed under the abdomen in order to flatten the lumbar lordosis. The back was prepped with ChloraPrep and sterilely draped. All personnel in the procedure room were dressed in appropriate attire including surgical scrubs, head and shoe covers. This was to ensure sterility while in the treatment room. During the time fluoroscopy was in use all personnel in the operating room wore [place] with thyroid collars. Sterile technique was used during the procedure. Then the fluoroscope was positioned to provide a right oblique view for the right T1 medial branch. This was begun by anesthetizing the skin and soft tissues. The fluoroscope was positioned and a sterile 22-gauge 3.5 inch needle was placed at the superior lateral junction of the T2 transverse process. Precise needle placement was confirmed by fluoroscopy. Then 0.2 cubic centimeters of IsoVue-200 contrast dye was injected through microbore tubing under live fluoroscopy and showed no intravascular flow pattern and adequate flow over the target medial branch. After negative aspiration, 0.5 cubic centimeters of 0.5% Ropivacaine was injected without complications. The fluoroscope was then positioned to provide a right T6 medial branch block. This was begun by anesthetizing the skin and soft tissues. Then using fluoroscopic guidance, a sterile 22-gauge 3.5 inch spinal needle was positioned at the right superior lateral T7 transverse process for the right T6 medial branch block. Precise needle placement was confirmed by fluoroscopy in AP and oblique views, and with 0.2 cubic centimeters of IsoVue-200 contrast dye was injected through microbore tubing under live fluoroscopy and showed no intravascular flow pattern and adequate flow over the target nerve. After negative aspiration, 1.0 cubic centimeters mixture of celestone and 0.5% Ropivacaine was injected. No complications were noted. This was repeated as above for the left T6 medial branch block without complications. The fluoroscope was positioned then to provide a right T7 medial branch block. The skin was anesthetized. Then a 22-gauge 3.5 inch spinal needle was positioned at the superior lateral junction of the T8 transverse process. Precise needle placement was confirmed by fluoroscopy and with 0.2 cubic centimeters of IsoVue-200 contrast dye injected through microbore tubing showing no intravascular flow pattern and adequate flow over the target medial branch. Then 1.0 cc mixture of Celestone and 0.5% Ropivacaine was injected after negative aspiration without complications. The procedure was then repeated as above for the left T7 medial branch block without complications The staff escorted the patient to the recovery area. The patient was given both oral and written discharge and followup instructions. The patient will follow up with a pain diary which will be evaluated over this evening doing things that would normally cause pain. We will evaluate the efficacy of the diagnostic lumbar medial branch blocks as the patient will follow up in the clinic the next day. The patient was given both oral and written discharge and followup instructions. The patient voiced understanding including understanding of those signs and symptoms that would require emergency care and knows how to contact the office if there are any questions or concerns in the meantime. PREOPERATIVE PAIN: 6/10. POSTOPERATIVE PAIN: 0/10. FOLLOWUP: In the Pain Clinic in 1 month. SOLO / FILI /[id number] CARON
== END 2020-09-25 14:28 ==
LOC: MW.SDS 11:54
PROVIDERS: ATTEND Anesthesiology
DX: G89.29 Other chronic pain (principal); M47.24 Other spondylosis with radiculopathy, thoracic region; M51.14 Intervertebral disc disorders with radiculopathy, thoracic region; M79.18 Myalgia, other site; M75.41 Impingement syndrome of right shoulder; Z79.899 Other long term (current) drug therapy; F17.210 Nicotine dependence, cigarettes, uncomplicated; M47.22 Other spondylosis with radiculopathy, cervical region
CPT/HCPCS: 64490; 64491; 64492; J0702; J2001; J2795; Q9966

== ENCOUNTER 2020-11-16 23:46 | Observation (INO) | payer OTHER ==
[2020-11-17] MEDS ORDERED: Sodium Chloride 0.9% 10 ML Syringe FLUSH PRN
[2020-11-17] MEDS ORDERED: Sodium Chloride 0.9% 2.5 ML Syringe FLUSH PRN
[2020-11-17] MEDS ORDERED: Lactated Ringers 1,000 ML IV ONE ×2 (00:01)
--- NOTE | 2020-11-17 00:18 | EDM.PDOC ---
ED HPI GENERAL MEDICAL PROBLEM - General Chief Complaint: Fever Stated Complaint: fever Time Seen by Provider: 11/16/20 23:47 Source of Information: Reports: Patient, Old Records History Limitations: Reports: No Limitations - History of Present Illness INITIAL COMMENTS - FREE TEXT/NARRATIVE: This is a very pleasant 35-year-old male with a past medical history of chronic back pain presenting with fever and chills. Patient reports the onset of fever and chills around 8:00 PM this evening. Temperature at home was as high as 102.3. Also accompanied by some fatigue and malaise. Patient took acetaminophen and naproxen around 10:00 this evening. States he was feeling fine until the fever and chills developed. Denies any history of preceding illness. Denies neck pain, sore throat, nasal congestion, rhinorrhea, chest pain, shortness of breath, dysuria, urinary frequency, hematuria, vomiting, diarrhea, nausea, abdominal pain, new back pain, rash, sick contacts. 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 He denies any new cough or shortness of breath today. ROS: A 10-point review of systems was negative, except as noted in the HPI (or in the ROS section of this note). Past medical history: Reviewed, no additional pertinent history. Surgical history: Reviewed in system, no additional pertinent history. Social history: Reviewed in system, no additional pertinent history. Family history: Reviewed in system, no additional pertinent history. PHYSICAL EXAM Vital signs reviewed. Nursing notes reviewed. Constitutional: Awake, alert, non-distressed. Head: Normocephalic, atraumatic. Eyes: Pupils 3 mm bilaterally, EOMI, conjunctiva normal, no discharge, no scleral icterus. Neck: Supple, full range of motion. Ears, Nose, Throat: External ears and nose normal, moist oral mucosa. No rhinorrhea. TMs and EACs clear bilaterally. Cardiovascular: Tachycardic, 2+ radial pulse, capillary refill less than 2 seconds. RRR no MRG. Pulmonary: Mildly tachypneic, normal work of breathing, no accessory muscle use. CTA BL. Abdomen/GI: Soft, nontender, nondistended, no guarding or rigidity, no masses. No CVA tenderness. Musculoskeletal: No deformities. Integumentary: Appropriate color for ethnicity, warm, dry, no pallor or jaundice, no rash. Neurologic: Alert, answering questions appropriately, normal speech, no facial droop, moving all extremities well. Psychiatric: Appropriate mood and affect, normal thought process. This patient was seen and evaluated during the 2019 SARS-CoV-2 novel coronavirus pandemic period. Community viral transmission is ongoing at time of this encounter and the emergency department is operating under pandemic response procedures. 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 chronic back Pain Score (Numeric/FACES): 3 - Related Data Allergies Allergy/AdvReac Type Severity Reaction Status Date / Time naltrexone Allergy Hives Verified 11/16/20 23:52 Home Meds: Home Meds methocarbamoL [Methocarbamol] 1 dose PO ASDIRECTED 11/16/20 [History] Past Medical History - Past Health History Medical/Surgical History: Denies Medical/Surgical History HEENT History: Reports: Impaired Vision, Other (See Below) Other HEENT History: wears glasses Musculoskeletal History: Reports: Back Pain, Chronic, Other (See Below) Other Musculoskeletal History: tendonitis, R shoulder Dermatologic History: Reports: Other (See Below) Other Dermatologic History: sutures L wrist/base of thumb Social & Family History - Family History Family Medical History: No Pertinent Family History - Tobacco Use Tobacco Use Status *Q: Current Every Day Tobacco User - Caffeine Use Caffeine Use: Reports: Other ED ROS GENERAL - Review of Systems Review Of Systems: See Below ED EXAM, GENERAL - Physical Exam Exam: See Below #1 Interpretation EKG Interpretation Comments: 12-Lead ECG Interpretation Acquired: 12:01 AM Rhythm: Sinus tachycardia Rate: 114 bpm [place]: Normal Intervals: Normal Ectopy: None RV Strain: No obvious RV strain pattern. ST Segments/T-Waves: No notable changes Acute Ischemic Changes: None apparent Interpretation: No STEMI Course - Vital Signs Text/Narrative:: 35-year-old male presenting with fever, chills, and weakness. Differential diagnosis includes but is not limited to: Sepsis, severe sepsis, acute viral illness, upper respiratory infection, influenza, pneumonia, UTI, pyelonephritis, bacteremia, intra-abdominal infection, less likely meningitis, and many others. Patient appears somewhat ill, tachypneic and tachycardic. Ordered blood cul tures, IV access, IV fluid bolus x2, labs, urinalysis, influenza testing, chest x-rays. We will plan for antibiotics after reviewing chest x-ray, UA, and influenza test. 12:56 AM: Labs show mild leukocytosis with increasing neutrophilic predominance. Lactate 2.3. Metabolic panel and LFTs look reassuring. Chest x-rays are clear. We are waiting on urinalysis, influenza testing, blood cultures, troponin is negative. Ordered vancomycin and Zosyn as we do not have a clear infectious source at this point. 2:11 AM: Ordered CT scans of the chest, abdomen, pelvis. Influenza test is pending. Antibiotics are infusing. 2:52 AM: Patient is down to radiology for CTs. Influenza testing is negative. 3:20 AM: Chest CT is unremarkable. CT abdomen/pelvis is unremarkable. Head CT is pending. Lactate normalized. Patient will be admitted to the hospital on observation status for further work-up and treatment of fever and sepsis of unclear etiology. I spoke with the hospitalist Dr. Caden Cruz who agrees to admit. 4:26 AM: I spoke with the reading radiologist regarding the head CT. CT of the head shows a likely venous angioma but the radiologist cannot entirely exclude a subarachnoid hemorrhage and recommends a repeat head CT in 4 to 6 hours once the contrast has cleared, also noted multiple arachnoid cysts, no evidence of injury. Patient has no history of trauma. He did develop some mild symptoms of "red man" syndrome after being started on vancomycin, we will reduce the infusion rate to under 500 mg/h and administer some diphenhydramine IV. Patient was subsequently admitted to observation without incident. I ordered a timed repeat head CT at 6 hours after the initial study. Last Recorded V/S: Last Vital Signs Temp 37.1 C 11/17/20 04:35 Pulse 82 11/17/20 04:35 Resp 18 11/17/20 04:35 BP 100/61 11/17/20 04:35 Pulse Ox 97 11/17/20 04:35 - Orders/Labs/Meds Orders: Active Orders 24 hr Category Date Time Status Cardiac Monitoring [RC] CONTINUOUS Care 11/17/20 00:01 Active Overnight Pulse Oximetry [RC] Click to Edit Care 11/17/20 00:01 Active CULTURE BLOOD [BC] Stat Lab 11/17/20 00:10 Received CULTURE BLOOD [BC] Stat Lab 11/17/20 00:40 Received Sodium Chloride 0.9% [Saline Flush] Med 11/17/20 00:00 Active 10 ml FLUSH ASDIRECTED PRN Sodium Chloride 0.9% [Saline Flush] Med 11/17/20 00:00 Active 2.5 ml FLUSH ASDIRECTED PRN Blood Culture x2 Reflex Set [OM.PC] Stat Oth 11/17/20 00:00 Ordered Isolation [COMM] Routine Oth 11/17/20 00:14 Active Pulse Oximetry Continuous Monitoring [OM.PC] Routine Oth 11/17/20 00:00 Ordered Saline Lock Insert [OM.PC] Stat Oth 11/17/20 00:00 Ordered Medication Orders Sodium Chloride (Saline Flush) 10 ml FLUSH ASDIRECTED PRN PRN Reason: Keep Vein Open Last Admin: 11/17/20 00:28 Dose: 10 ml Documented by: ELZBIETA Sodium Chloride (Saline Flush) 2.5 ml FLUSH ASDIRECTED PRN PRN Reason: Keep Vein Open Last Admin: 11/17/20 00:29 Dose: 2.5 ml Documented by: ELZBIETA Labs: Laboratory Tests 11/17/20 11/17/20 11/17/20 Range/Units 00:10 00:10 00:10 WBC 11.88 H (4.0-11.0) K/uL RBC 5.12 (4.50-5.90) M/uL Hgb 15.6 (13.0-17.0) g/dL Hct 44.3 (38.0-50.0) % MCV 86.5 (80.0-98.0) fL MCH 30.5 (27.0-32.0) pg MCHC 35.2 (31.0-37.0) g/dL RDW Std Deviation 38.0 (28.0-62.0) fl RDW Coeff of Robert 12 (11.0-15.0) % Plt Count 162 (150-400) K/uL MPV 11.00 (7.40-12.00) fL Neut % (Auto) 88.3 H (48.0-80.0) % Lymph % (Auto) 7.2 L (16.0-40.0) % [place] % (Auto) 3.5 (0.0-15.0) % Eos % (Auto) 0.8 (0.0-7.0) % Baso % (Auto) 0.2 (0.0-1.5) % Neut # (Auto) 10.5 H (1.4-5.7) K/uL Lymph # (Auto) 0.9 (0.6-2.4) K/uL [place] # (Auto) 0.4 (0.0-0.8) K/uL Eos # (Auto) 0.1 (0.0-0.7) K/uL Baso # (Auto) 0.0 (0.0-0.1) K/uL INR 1.00 Lactate 2.3 H* (0.20-2.00) mmol/L Sodium (136-148) mmol/L Potassium (3.5-5.1) mmol/L Chloride (98-107) mmol/L Carbon Dioxide (21.0-32.0) mmol/L BUN (7.0-18.0) mg/dL Creatinine (0.8-1.3) mg/dL Est Cr Clr Drug Dosing mL/min Estimated GFR (MDRD) ml/min Glucose (74-106) mg/dL Calcium (8.5-10.1) mg/dL Total Bilirubin (0.2-1.0) mg/dL AST (15-37) IU/L ALT (14-63) IU/L Alkaline Phosphatase (46-116) U/L Troponin I (0.000-0.056) ng/mL Total Protein (6.4-8.2) g/dL Albumin (3.4-5.0) g/dL Globulin (2.6-4.0) g/dL Albumin/Globulin Ratio (0.9-1.6) Urine Color Urine Appearance Urine pH (5.0-8.0) Ur Specific [place] (1.001-1.035) Urine Protein (NEGATIVE) mg/dL Urine Glucose (UA) (NEGATIVE) mg/dL Urine Ketones (NEGATIVE) mg/dL Urine Occult Blood (NEGATIVE) Urine Nitrite (NEGATIVE) Urine Bilirubin (NEGATIVE) Urine Urobilinogen (<2.0) EU/dL Ur Leukocyte Esterase (NEGATIVE) Urine RBC (0-2/HPF) Urine WBC (0-5/HPF) Ur Epithelial Cells (NONE-FEW) Urine Bacteria (NEGATIVE) 11/17/20 11/17/20 11/17/20 Range/Units 00:10 00:10 00:15 WBC (4.0-11.0) K/uL RBC (4.50-5.90) M/uL Hgb (13.0-17.0) g/dL Hct (38.0-50.0) % MCV (80.0-98.0) fL MCH (27.0-32.0) pg MCHC (31.0-37.0) g/dL RDW Std Deviation (28.0-62.0) fl RDW Coeff of Robert (11.0-15.0) % Plt Count (150-400) K/uL MPV (7.40-12.00) fL Neut % (Auto) (48.0-80.0) % Lymph % (Auto) (16.0-40.0) % [place] % (Auto) (0.0-15.0) % Eos % (Auto) (0.0-7.0) % Baso % (Auto) (0.0-1.5) % Neut # (Auto) (1.4-5.7) K/uL Lymph # (Auto) (0.6-2.4) K/uL [place] # (Auto) (0.0-0.8) K/uL Eos # (Auto) (0.0-0.7) K/uL Baso # (Auto) (0.0-0.1) K/uL INR Lactate (0.20-2.00) mmol/L Sodium 142 (136-148) mmol/L Potassium 3.8 (3.5-5.1) mmol/L Chloride 104 (98-107) mmol/L Carbon Dioxide 28.6 (21.0-32.0) mmol/L BUN 6 L (7.0-18.0) mg/dL Creatinine 1.2 (0.8-1.3) mg/dL Est Cr Clr Drug Dosing 92.38 mL/min Estimated GFR (MDRD) > 60.0 ml/min Glucose 105 (74-106) mg/dL Calcium 8.7 (8.5-10.1) mg/dL Total Bilirubin 0.6 (0.2-1.0) mg/dL AST 27 (15-37) IU/L ALT 78 H (14-63) IU/L Alkaline Phosphatase 77 (46-116) U/L Troponin I < 0.050 (0.000-0.056) ng/mL Total Protein 7.2 (6.4-8.2) g/dL Albumin 3.9 (3.4-5.0) g/dL Globulin 3.3 (2.6-4.0) g/dL Albumin/Globulin Ratio 1.2 (0.9-1.6) Urine Color YELLOW Urine Appearance CLEAR Urine pH 5.5 (5.0-8.0) Ur Specific [place] >= 1.030 (1.001-1.035) Urine Protein NEGATIVE (NEGATIVE) mg/dL Urine Glucose (UA) NEGATIVE (NEGATIVE) mg/dL Urine Ketones NEGATIVE (NEGATIVE) mg/dL Urine Occult Blood NEGATIVE (NEGATIVE) Urine Nitrite NEGATIVE (NEGATIVE) Urine Bilirubin NEGATIVE (NEGATIVE) Urine Urobilinogen 0.2 (<2.0) EU/dL Ur Leukocyte Esterase NEGATIVE (NEGATIVE) Urine RBC 0-1 (0-2/HPF) Urine WBC 0-1 (0-5/HPF) Ur Epithelial Cells RARE (NONE-FEW) Urine Bacteria RARE (NEGATIVE) Meds: Medications Generic Name Dose Route Start Last Admin Trade Name Freq PRN Reason Stop Dose Admin Sodium Chloride 10 ml 11/17/20 00:00 11/17/20 00:28 Saline Flush FLUSH 10 ml ASDIRECTED PRN Administration Keep Vein Open Sodium Chloride 2.5 ml 11/17/20 00:00 11/17/20 00:29 Saline Flush FLUSH 2.5 ml ASDIRECTED PRN Administration Keep Vein Open Discontinued Medications Generic Name Dose Route Start Last Admin Trade Name Freq PRN Reason Stop Dose Admin Acetaminophen 650 mg 11/17/20 02:58 11/17/20 03:04 Tylenol PO 11/17/20 02:59 650 mg NOW ONE Administration Diphenhydramine HCl 25 mg 11/17/20 04:34 11/17/20 04:39 Benadryl IVPUSH 11/17/20 04:35 25 mg ONETIME ONE Administration Lactated Ringer's 1,000 mls @ 999 mls/hr 11/17/20 00:01 11/17/20 00:26 Ringers, Lactated IV 11/17/20 01:01 999 mls/hr .BOLUS ONE Administration Lactated Ringer's 1,000 mls @ 999 mls/hr 11/17/20 00:01 11/17/20 00:28 Ringers, Lactated IV 11/17/20 01:01 999 mls/hr .BOLUS ONE Administration Vancomycin HCl 2.5 gm/ 250 mls @ 167 mls/hr 11/17/20 00:57 11/17/20 02:05 Dextrose/Water IV 11/17/20 02:26 Not Given ONETIME ONE Piperacillin Sod/Tazobactam 100 mls @ 200 mls/hr 11/17/20 00:57 11/17/20 02:04 Sod 4.5 gm/ Sodium Chloride IV 11/17/20 01:26 200 mls/hr STAT ONE Administration Vancomycin HCl 2.5 gm/ Sodium 250 mls @ 125 mls/hr 11/17/20 02:00 11/17/20 02:22 Chloride IV 11/17/20 03:59 125 mls/hr ONETIME ONE Administration Iopamidol 100 ml 11/17/20 02:44 11/17/20 02:52 Isovue Multipack-370 (76%) IVPUSH 11/17/20 02:45 100 ml ONETIME STA Administration Departure - Departure Time of Disposition: 03:20 Disposition: Refer to Observation Condition: Good Clinical Impression: Sepsis due to undetermined organism - Discharge Information Sepsis Event Note (ED) - Evaluation Sepsis Screening Result: Possible Sepsis Risk - Focused Exam Vital Signs: Vital Signs Temp Temp Temp Pulse Resp BP Pulse Ox 11/17/20 03:04 38.1 C 11/17/20 02:55 38.1 C 89 18 108/55 L 96 11/17/20 02:30 37.7 C 98 18 109/59 L 96 11/17/20 02:10 37.7 C 101 H 18 107/51 L 98 11/17/20 01:41 37.7 C 36.6 C 102 H 18 108/69 96 11/17/20 00:35 37.7 C 110 H 26 H 124/79 96 11/16/20 23:54 37.7 C 146 H 20 126/83 96 - My Orders Last 24 Hours: My Active Orders 11/17/20 00:00 Sodium Chloride 0.9% [Saline Flush] 10 ml FLUSH ASDIRECTED PRN Sodium Chloride 0.9% [Saline Flush] 2.5 ml FLUSH ASDIRECTED PRN Blood Culture x2 Reflex Set [OM.PC] Stat Pulse Oximetry Continuous Monitoring [OM.PC] Routine Saline Lock Insert [OM.PC] Stat 11/17/20 00:01 Cardiac Monitoring [RC] CONTINUOUS Overnight Pulse Oximetry [RC] Click to Edit 11/17/20 00:10 CULTURE BLOOD [BC] Stat 11/17/20 00:14 Isolation [COMM] Routine 11/17/20 00:40 CULTURE BLOOD [BC] Stat - Assessment/Plan Last 24 Hours: My Active Orders 11/17/20 00:00 Sodium Chloride 0.9% [Saline Flush] 10 ml FLUSH ASDIRECTED PRN Sodium Chloride 0.9% [Saline Flush] 2.5 ml FLUSH ASDIRECTED PRN Blood Culture x2 Reflex Set [OM.PC] Stat Pulse Oximetry Continuous Monitoring [OM.PC] Routine Saline Lock Insert [OM.PC] Stat 11/17/20 00:01 Cardiac Monitoring [RC] CONTINUOUS Overnight Pulse Oximetry [RC] Click to Edit 11/17/20 00:10 CULTURE BLOOD [BC] Stat 11/17/20 00:14 Isolation [COMM] Routine 11/17/20 00:40 CULTURE BLOOD [BC] Stat
--- NOTE | 2020-11-17 00:40 | CR ---
INDICATION: Sepsis COMPARISON: 08/21/2019 FINDINGS: PA and lateral views of the chest were obtained. The lungs remain clear. No focal or diffuse infiltrates are present. The heart remains normal in size. The mediastinum is normal in appearance. The osseous structures are normal in appearance for the patient`s age. IMPRESSION: Normal chest two views. Dictated by Kelvin Laird MD @ Nov 17 2020 12:37AM Signed by Dr. Kelvin Laird @ Nov 17 2020 12:38AM
[2020-11-17 00:50] LABS: BLOOD UREA NITROGEN,BUN 6 mg/dL (7.0-18.0); CARBON DIOXIDE,CO2 28.6 mmol/L (21.0-32.0); CHLORIDE,CL 104 mmol/L (98-107); GLUCOSE RANDOM 105 mg/dL (74-106); POTASSIUM,K 3.8 mmol/L (3.5-5.1); SODIUM,NA 142 mmol/L (136-148)
[2020-11-17] MEDS ORDERED: VANCOMYCIN IV ONE ×3 (00:57→02:00)
[2020-11-17] MEDS ORDERED: DEXTROSE 5% IV ONE ×2 (00:57)
[2020-11-17] MEDS ORDERED: WATER IV ONE ×2 (00:57)
[2020-11-17] MEDS ORDERED: Piperacillin/Tazobactam 4.5 GM in Sodium Chloride 0.9% 100 ML IV ONE (00:57)
[2020-11-17] MEDS ORDERED: SODIUM CHLORIDE 0.9% IV ONE (02:00)
[2020-11-17] MEDS ORDERED: Iopamidol 755 MG/ML 500 ML Multipack Bottle IVPUSH STA (02:44)
[2020-11-17] MEDS ORDERED: Acetaminophen 325 MG Tab PO ONE (02:58)
--- NOTE | 2020-11-17 03:16 | CT ---
INDICATION: Sepsis of uncertain source. COMPARISON: Chest radiograph from today. TECHNIQUE: : CT examination of the chest was performed with the uneventful intravenous administration of 100 cc of Isovue 370 while 3 mm thick axial sections were obtained from above the apices of the lungs to the lung bases. Please note that all CT scans at this facility use dose modulation, iterative reconstruction, and/or weight-based dosing when appropriate to reduce radiation dose to as low as reasonably achievable. FINDINGS: : The lungs are clear with no sign of significant infiltrate or mass. There is no sign of mediastinal or hilar mass or adenopathy. The heart is normal in appearance for the patient`s age, as are the aorta and other ascending great vessels. There is no sign of supraclavicular or axillary mass or adenopathy. The visualized superior liver, spleen, pancreas, kidneys, and adrenals are normal in appearance. The osseous structures are normal in appearance for the patient`s age. IMPRESSION: Normal CT of the chest with contrast. Nothing seen in the chest to explain the patient`s sepsis. Please note that all CT scans at this facility use dose modulation, iterative reconstruction, and/or weight-based dosing when appropriate to reduce radiation dose to as low as reasonably achievable. Dictated by Kelvin Laird MD @ Nov 17 2020 3:13AM Signed by Dr. Kelvin Laird @ Nov 17 2020 3:15AM
--- NOTE | 2020-11-17 03:20 | CT ---
INDICATION: Sepsis of uncertain source. COMPARISON: CT of the chest with contrast from today. TECHNIQUE: CT examination of the abdomen and pelvis was performed with the uneventful intravenous administration of Isovue 370 as part of the accompanying CT of the chest while 3 mm thick axial sections were obtained from the lung bases through the pubic symphysis. Oral contrast was not administered. Please note that all CT scans at this facility use dose modulation, iterative reconstruction, and/or weight-based dosing when appropriate to reduce radiation dose to as low as reasonably achievable. FINDINGS: In the abdomen, the liver and spleen are mildly enlarged, the liver measuring 20.7 centimeters in length and the spleen measuring 13.6 centimeters in length. There is no sign of any hepatic or splenic mass. The pancreas and adrenals are normal in appearance. The kidneys are normal in appearance. The gallbladder is normal in appearance. The abdominal aorta is normal in caliber with no sign of dilatation. There is no sign of retroperitoneal mass or adenopathy. There is a small hiatal hernia. The rest of the stomach, loops of small bowel, and colon in the abdomen are otherwise normal in appearance. In the pelvis, the appendix is normal in appearance with no sign of inflammatory process. The loops of small bowel and colon in the pelvis are normal in appearance. The prostate is normal in appearance. The urinary bladder is mildly distended and is otherwise normal in appearance. There is no sign of pelvic or inguinal mass or adenopathy. There is no sign of free air or free fluid in the abdomen or pelvis. The lung bases are clear. The osseous structures are normal in appearance for the patient`s age. IMPRESSION: No sign of any deep-seated infection in the abdomen or pelvis to explain the patient`s sepsis. CT of the abdomen shows mild past splenomegaly of uncertain etiology. Normal CT of the pelvis with contrast. Please note that all CT scans at this facility use dose modulation, iterative reconstruction, and/or weight-based dosing when appropriate to reduce radiation dose to as low as reasonably achievable. Dictated by Kelvin Laird MD @ Nov 17 2020 3:16AM Signed by Dr. Kelvin Laird @ Nov 17 2020 3:19AM
--- NOTE | 2020-11-17 04:29 | CT ---
INDICATION: New onset of headache and fever. COMPARISON: None available. TECHNIQUE: CT examination of the head was performed with 3 mm thick axial, sagittal, and coronal sections without intravenous contrast. Images were obtained from the vertex of the skull through the skull base, and I examined the images with the brain and bone windows. Please note that all CT scans at this facility use dose modulation, iterative reconstruction, and/or weight-based dosing when appropriate to reduce radiation dose to as low as reasonably achievable. FINDINGS: : The patient did not have additional intravenous contrast for this study, but CT scanning of the chest, abdomen, and pelvis is performed 40 minutes prior to this examination, and there is significant intravenous contrast remaining in the vascular space. There is a linear area of density in the right posterior temporal lobe extending to the transverse sinus, typical of a venous angioma (developmental venous anomaly). I cannot entirely exclude a small area of subarachnoid hemorrhage, so I recommend repeat CT of the head in 4-6 hours, once the contrast has cleared from the vascular pool. There is a moderate sized arachnoid cyst in the anterior right middle temporal fossa, of no clinical concern. Incidental note is made of a small arachnoid cyst along the posterior-medial left cerebellar hemisphere, also of no clinical concern. The brain is otherwise normal in appearance for the patient`s age on today`s study, with no sign of mass lesion, mass effect, hemorrhage, or edema. The ventricles and sulci are normal in appearance for the patient`s age. The visualized portions of the orbits are normal in appearance. The visualized portions of the paranasal sinuses and mastoids are clear. The osseous structures are normal in their appearance with no sign of abnormality in the skull base or calvarium. I discussed the findings with Dr. Raul Watkins at 0425 hours on 11/17/2020. 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 I cannot entirely exclude subarachnoid hemorrhage. Recommend repeat CT of the head without contrast in 4-6 hours, once the intravenous contrast has cleared from the vascular space. Arachnoid cysts in the right middle cranial fossa and medial to the posterior left cerebellar hemisphere, of no clinical concern. No sign of acute injury to the brain, with nothing seen that would explain headaches or sepsis. Please note that all CT scans at this facility use dose modulation, iterative reconstruction, and/or weight-based dosing when appropriate to reduce radiation dose to as low as reasonably achievable. Dictated by Warren Laird,MD @ Nov 17 2020 4:14AM Signed by Dr. Kelvin Laird @ Nov 17 2020 4:28AM
[2020-11-17] MEDS ORDERED: diphenhydrAMINE 50 MG/ML SDV IVPUSH ONE (04:34)
[2020-11-17 07:03] LABS: BLOOD UREA NITROGEN,BUN 7 mg/dL (7.0-18.0); CHLORIDE,CL 107 mmol/L (98-107); GLUCOSE RANDOM 106 mg/dL (74-106); POTASSIUM,K 4.2 mmol/L (3.5-5.1); SODIUM,NA 142 mmol/L (136-148)
[2020-11-17] MEDS: Piperacillin/Tazobactam 3.375 GM in Sodium Chloride 0.9% 50 ML IV SCH ×3 (07:46→21:00)
--- NOTE | 2020-11-17 08:08 | PCM.HP.2 ---
H&P History of Present Illness - General Date of Service: 11/17/20 Admit Problem/Dx: Admission Diagnosis/Problem Admission Diagnosis/Problem Sepsis Source of Information: Patient History Limitations: Reports: No Limitations - History of Present Illness Initial Comments - Free Text/Narative: Patient is a 35-year-old male with no significant past medical history except chronic back pain presenting yesterday to the ED with fevers and chills. Patient mentions having fevers and chills around 8 PM with temperature as high as 102. Despite using Tylenol and naproxen patient is still complaining of fatigue and malaise. Of note patient was diagnosed with COVID-19 in September 2020 but only symptoms experienced was loss of taste. ED course: EKG suggested sinus tachycardia without any ST elevation depressions. Patient was given 2 L bolus IV fluids after lactate of 2.3 was appreciated. Chest x-ray negative. Troponin negative. Blood cultures ordered. No overt source of infection; therefore vancomycin and Zosyn was started. CT of the chest abdomen pelvis ordered and unremarkable. Influenza negative. CT chest negative. Head CT: Concerns for venous angioma however could not exclude subarachnoid hemorrhage and recommended, per radiology, to repeat CT in 4 to 6 hours. Admitted to general medical floor Bedside: No acute distress awaiting repeat head CT this a.m. Mentions feeling tired and warm. Decreased appetite but no other acute distress. chronic back Pain Score (Numeric/FACES): 3 - Related Data Allergies/Adverse Reactions: Allergies Allergy/AdvReac Type Severity Reaction Status Date / Time naltrexone Allergy Hives Verified 11/16/20 23:52 Home Medications: Home Meds methocarbamoL [Methocarbamol] 1 dose PO ASDIRECTED 11/16/20 [History] Past Medical History - Past Health History Medical/Surgical History: Denies Medical/Surgical History HEENT History: Reports: Impaired Vision, Other (See Below) Other HEENT History: wears glasses Musculoskeletal History: Reports: Back Pain, Chronic, Other (See Below) Other Musculoskeletal History: tendonitis, R shoulder Dermatologic History: Reports: Other (See Below) Other Dermatologic History: sutures L wrist/base of thumb - Infectious Disease History Infectious Disease History: Reports: Influenza - Past Surgical History Musculoskeletal Surgical History: Reports: None Social & Family History - Family History Family Medical History: No Pertinent Family History - Tobacco Use Tobacco Use Status *Q: Current Every Day Tobacco User Years of Tobacco use: 16 Packs/Tins Daily: 0.5 Second Hand Smoke Exposure: Yes - Caffeine Use Caffeine Use: Reports: Energy Drinks - Recreational Drug Use Recreational Drug Use: No H&P Review of Systems - Review of Systems: Review Of Systems: See Below General: Reports: Fever, Fatigue HEENT: Reports: No Symptoms Pulmonary: Reports: No Symptoms Cardiovascular: Reports: No Symptoms Gastrointestinal: Reports: No Symptoms. Denies: Abdominal Pain, Constipation, Diarrhea Genitourinary: Reports: No Symptoms Musculoskeletal: Reports: No Symptoms Skin: Reports: No Symptoms Psychiatric: Reports: No Symptoms Neurological: Reports: Headache Exam - Exam Exam: See Below - Vital Signs Vital Signs: Last Vital Signs Temp 97.4 F 11/17/20 05:39 Pulse 78 11/17/20 05:39 Resp 18 11/17/20 05:39 BP 112/74 11/17/20 05:39 Pulse Ox 96 11/17/20 05:39 Weight: 128.1 kg - Exam Quality Assessment: No: Supplemental Oxygen General: Alert, Oriented, Cooperative HEENT: EACs Clear, EOMI Neck: Supple, Trachea Midline Lungs: Clear to Auscultation, Normal Respiratory Effort Cardiovascular: Regular Rate, Regular Rhythm GI/Abdominal Exam: Normal Bowel Sounds, Soft, Non-Tender Extremities: Normal Inspection, Normal Range of Motion Skin: Warm, Dry Neurological: Cranial Nerves Intact Neuro Extensive - Mental Status: Alert, Oriented x3, Normal Mood/Affect - Patient Data Lab Results Last 24 hrs: Laboratory Results - last 24 hr 11/17/20 11/17/20 11/17/20 Range/Units 00:10 00:10 00:10 WBC 11.88 H (4.0-11.0) K/uL RBC 5.12 (4.50-5.90) M/uL Hgb 15.6 (13.0-17.0) g/dL Hct 44.3 (38.0-50.0) % MCV 86.5 (80.0-98.0) fL MCH 30.5 (27.0-32.0) pg MCHC 35.2 (31.0-37.0) g/dL RDW Std Deviation 38.0 (28.0-62.0) fl RDW Coeff of Robert 12 (11.0-15.0) % Plt Count 162 (150-400) K/uL MPV 11.00 (7.40-12.00) fL Neut % (Auto) 88.3 H (48.0-80.0) % Lymph % (Auto) 7.2 L (16.0-40.0) % Roosevelt % (Auto) 3.5 (0.0-15.0) % Eos % (Auto) 0.8 (0.0-7.0) % Baso % (Auto) 0.2 (0.0-1.5) % Neut # (Auto) 10.5 H (1.4-5.7) K/uL Lymph # (Auto) 0.9 (0.6-2.4) K/uL Roosevelt # (Auto) 0.4 (0.0-0.8) K/uL Eos # (Auto) 0.1 (0.0-0.7) K/uL Baso # (Auto) 0.0 (0.0-0.1) K/uL Nucleated RBC % /100WBC Nucleated RBCs # K/uL INR 1.00 Lactate 2.3 H* (0.20-2.00) mmol/L Sodium (136-148) mmol/L Potassium (3.5-5.1) mmol/L Chloride (98-107) mmol/L Carbon Dioxide (21.0-32.0) mmol/L BUN (7.0-18.0) mg/dL Creatinine (0.8-1.3) mg/dL Est Cr Clr Drug Dosing mL/min Estimated GFR (MDRD) ml/min Glucose (74-106) mg/dL Calcium (8.5-10.1) mg/dL Total Bilirubin (0.2-1.0) mg/dL AST (15-37) IU/L ALT (14-63) IU/L Alkaline Phosphatase (46-116) U/L Troponin I (0.000-0.056) ng/mL Total Protein (6.4-8.2) g/dL Albumin (3.4-5.0) g/dL Globulin (2.6-4.0) g/dL Albumin/Globulin Ratio (0.9-1.6) Urine Color Urine Appearance Urine pH (5.0-8.0) Ur Specific [place] (1.001-1.035) Urine Protein (NEGATIVE) mg/dL Urine Glucose (UA) (NEGATIVE) mg/dL Urine Ketones (NEGATIVE) mg/dL Urine Occult Blood (NEGATIVE) Urine Nitrite (NEGATIVE) Urine Bilirubin (NEGATIVE) Urine Urobilinogen (<2.0) EU/dL Ur Leukocyte Esterase (NEGATIVE) Urine RBC (0-2/HPF) Urine WBC (0-5/HPF) Ur Epithelial Cells (NONE-FEW) Urine Bacteria (NEGATIVE) 11/17/20 11/17/20 11/17/20 Range/Units 00:10 00:10 00:15 WBC (4.0-11.0) K/uL RBC (4.50-5.90) M/uL Hgb (13.0-17.0) g/dL Hct (38.0-50.0) % MCV (80.0-98.0) fL MCH (27.0-32.0) pg MCHC (31.0-37.0) g/dL RDW Std Deviation (28.0-62.0) fl RDW Coeff of Robert (11.0-15.0) % Plt Count (150-400) K/uL MPV (7.40-12.00) fL Neut % (Auto) (48.0-80.0) % Lymph % (Auto) (16.0-40.0) % Roosevelt % (Auto) (0.0-15.0) % Eos % (Auto) (0.0-7.0) % Baso % (Auto) (0.0-1.5) % Neut # (Auto) (1.4-5.7) K/uL Lymph # (Auto) (0.6-2.4) K/uL Roosevelt # (Auto) (0.0-0.8) K/uL Eos # (Auto) (0.0-0.7) K/uL Baso # (Auto) (0.0-0.1) K/uL Nucleated RBC % /100WBC Nucleated RBCs # K/uL INR Lactate (0.20-2.00) mmol/L Sodium 142 (136-148) mmol/L Potassium 3.8 (3.5-5.1) mmol/L Chloride 104 (98-107) mmol/L Carbon Dioxide 28.6 (21.0-32.0) mmol/L BUN 6 L (7.0-18.0) mg/dL Creatinine 1.2 (0.8-1.3) mg/dL Est Cr Clr Drug Dosing 92.38 mL/min Estimated GFR (MDRD) > 60.0 ml/min Glucose 105 (74-106) mg/dL Calcium 8.7 (8.5-10.1) mg/dL Total Bilirubin 0.6 (0.2-1.0) mg/dL AST 27 (15-37) IU/L ALT 78 H (14-63) IU/L Alkaline Phosphatase 77 (46-116) U/L Troponin I < 0.050 (0.000-0.056) ng/mL Total Protein 7.2 (6.4-8.2) g/dL Albumin 3.9 (3.4-5.0) g/dL Globulin 3.3 (2.6-4.0) g/dL Albumin/Globulin Ratio 1.2 (0.9-1.6) Urine Color YELLOW Urine Appearance CLEAR Urine pH 5.5 (5.0-8.0) Ur Specific [place] >= 1.030 (1.001-1.035) Urine Protein NEGATIVE (NEGATIVE) mg/dL Urine Glucose (UA) NEGATIVE (NEGATIVE) mg/dL Urine Ketones NEGATIVE (NEGATIVE) mg/dL Urine Occult Blood NEGATIVE (NEGATIVE) Urine Nitrite NEGATIVE (NEGATIVE) Urine Bilirubin NEGATIVE (NEGATIVE) Urine Urobilinogen 0.2 (<2.0) EU/dL Ur Leukocyte Esterase NEGATIVE (NEGATIVE) Urine RBC 0-1 (0-2/HPF) Urine WBC 0-1 (0-5/HPF) Ur Epithelial Cells RARE (NONE-FEW) Urine Bacteria RARE (NEGATIVE) 11/17/20 11/17/20 11/17/20 Range/Units 03:25 06:30 06:30 WBC 14.03 H (4.0-11.0) K/uL RBC 4.57 (4.50-5.90) M/uL Hgb 13.7 (13.0-17.0) g/dL Hct 40.6 (38.0-50.0) % MCV 88.8 (80.0-98.0) fL MCH 30.0 (27.0-32.0) pg MCHC 33.7 (31.0-37.0) g/dL RDW Std Deviation 40.0 (28.0-62.0) fl RDW Coeff of Robert 13 (11.0-15.0) % Plt Count 155 (150-400) K/uL MPV 11.00 (7.40-12.00) fL Neut % (Auto) 83.8 H (48.0-80.0) % Lymph % (Auto) 8.6 L (16.0-40.0) % Roosevelt % (Auto) 7.1 (0.0-15.0) % Eos % (Auto) 0.4 (0.0-7.0) % Baso % (Auto) 0.1 (0.0-1.5) % Neut # (Auto) 11.7 H (1.4-5.7) K/uL Lymph # (Auto) 1.2 (0.6-2.4) K/uL [place] # (Auto) 1.0 H (0.0-0.8) K/uL Eos # (Auto) 0.1 (0.0-0.7) K/uL Baso # (Auto) 0.0 (0.0-0.1) K/uL Nucleated RBC % 0.0 /100WBC Nucleated RBCs # 0 K/uL INR Lactate 1.3 (0.20-2.00) mmol/L Sodium 142 (136-148) mmol/L Potassium 4.2 (3.5-5.1) mmol/L Chloride 107 (98-107) mmol/L Carbon Dioxide 28.0 (21.0-32.0) mmol/L BUN 7 (7.0-18.0) mg/dL Creatinine 1.2 (0.8-1.3) mg/dL Est Cr Clr Drug Dosing 92.38 mL/min Estimated GFR (MDRD) > 60.0 ml/min Glucose 106 (74-106) mg/dL Calcium 8.4 L (8.5-10.1) mg/dL Total Bilirubin 1.1 H (0.2-1.0) mg/dL AST 24 (15-37) IU/L ALT 66 H (14-63) IU/L Alkaline Phosphatase 60 (46-116) U/L Troponin I (0.000-0.056) ng/mL Total Protein 6.0 L (6.4-8.2) g/dL Albumin 3.2 L (3.4-5.0) g/dL Globulin 2.8 (2.6-4.0) g/dL Albumin/Globulin Ratio 1.1 (0.9-1.6) Urine Color Urine Appearance Urine pH (5.0-8.0) Ur Specific [place] (1.001-1.035) Urine Protein (NEGATIVE) mg/dL Urine Glucose (UA) (NEGATIVE) mg/dL Urine Ketones (NEGATIVE) mg/dL Urine Occult Blood (NEGATIVE) Urine Nitrite (NEGATIVE) Urine Bilirubin (NEGATIVE) Urine Urobilinogen (<2.0) EU/dL Ur Leukocyte Esterase (NEGATIVE) Urine RBC (0-2/HPF) Urine WBC (0-5/HPF) Ur Epithelial Cells (NONE-FEW) Urine Bacteria (NEGATIVE) Result Diagrams: 11/17/20 06:30 11/17/20 06:30 Garth Results Last 24 hrs: Microbiology 11/17/20 02:12 Influenza Type A Antigen Screen - Final Nasopharyngeal Swab NEGATIVE INFLUENZA A VIRUS AG REFERENCE RANGE: NEGATIVE Influenza Type B Antigen Screen - Final NEGATIVE INFLUENZA B VIRUS AG REFERENCE RANGE: NEGATIVE Sepsis Event Note - Evaluation Sepsis Screening Result: No Definite Risk - Focused Exam Vital Signs: Vital Signs Temp Temp Temp Pulse Resp BP Pulse Ox 11/17/20 05:39 97.4 F 78 18 112/74 96 11/17/20 05:13 98.8 F 77 16 99/53 L 96 11/17/20 04:35 98.8 F 82 18 100/61 97 11/17/20 03:04 100.6 F 11/17/20 02:55 100.6 F 89 18 108/55 L 96 11/17/20 02:30 99.9 F 98 18 109/59 L 96 11/17/20 02:10 99.9 F 101 H 18 107/51 L 98 11/17/20 01:41 99.9 F 97.8 F 102 H 18 108/69 96 11/17/20 00:35 99.9 F 110 H 26 H 124/79 96 11/16/20 23:54 99.9 F 146 H 20 126/83 96 Problem List Initiated/Reviewed/Updated: Yes Orders Last 24hrs: Active Orders 24 hr Category Date Time Status Admission Status [Patient Status] [ADT] Stat ADT 11/17/20 03:16 Active Cardiac Monitoring [RC] CONTINUOUS Care 11/17/20 00:01 Active Overnight Pulse Oximetry [RC] Click to Edit Care 11/17/20 00:01 Active Vital Signs [RC] Q4H Care 11/17/20 06:22 Active Regular Diet [DIET] Diet 11/17/20 Breakfast Active Head wo Cont [CT] Timed Exams 11/17/20 09:11 Ordered CULTURE BLOOD [BC] Stat Lab 11/17/20 00:10 Received CULTURE BLOOD [BC] Stat Lab 11/17/20 00:40 Received Piperacillin/Tazobactam [Piperacil-Tazobact] 3.375 gm Med 11/17/20 07:00 Active Sodium Chloride 0.9% [Normal Saline] 50 ml IV Q8H Sodium Chloride 0.9% [Saline Flush] Med 11/17/20 00:00 Active 10 ml FLUSH ASDIRECTED PRN Sodium Chloride 0.9% [Saline Flush] Med 11/17/20 00:00 Active 2.5 ml FLUSH ASDIRECTED PRN Blood Culture x2 Reflex Set [OM.PC] Stat Oth 11/17/20 00:00 Ordered Isolation [COMM] Routine Oth 11/17/20 00:14 Active Pulse Oximetry Continuous Monitoring [OM.PC] Routine Oth 11/17/20 00:00 Ordered Saline Lock Insert [OM.PC] Stat Oth 11/17/20 00:00 Ordered Medication Orders Piperacillin Sod/Tazobactam (Sod 3.375 gm/ Sodium Chloride) 50 mls @ 100 mls/hr IV Q8H [facility] Last Admin: 11/17/20 07:46 Dose: 100 mls/hr Documented by: ABAD Sodium Chloride (Saline Flush) 10 ml FLUSH ASDIRECTED PRN PRN Reason: Keep Vein Open Last Admin: 11/17/20 00:28 Dose: 10 ml Documented by: ELZBIETA Sodium Chloride (Saline Flush) 2.5 ml FLUSH ASDIRECTED PRN PRN Reason: Keep Vein Open Last Admin: 11/17/20 00:29 Dose: 2.5 ml Documented by: ELZBIETA Assessment/Plan Comment:: Assessment: 1. Leukocytosis 2. Covid-19 positive in September 3. PMH: chronic back pain 4. Venous Angioma as noted on Head CT Plan. Admit to observation. Full code. I's and O's per routine vitals per routine. Up ad paulina. 1. Leukocytosis: Unsure of etiology and or source of infection: Continue vancomycin and Zosyn and will await blood culture results. Will consider repeating influenza swab this afternoon secondary to history and physical. LR @ 150 due to decreased PO intake Start Carly-flu BID secondary to flu-like symptoms 2. Repeat head CT suggested no acute intracranial bleed. 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 No significant past medical history
--- NOTE | 2020-11-17 09:44 | CT ---
INDICATION: New headache and fever. Follow-up attenuation abnormality in the posterior right temporal region. TECHNIQUE: Noncontrast CT images were acquired through the brain. COMPARISON: CT brain 11/17/2020 at 0319 hours. FINDINGS: Subtle curvilinear hyperattenuation within the posterior right temporal lobe has significantly decreased in conspicuity and is most compatible with a developmental venous anomaly demonstrating contrast filling on the prior CT. No acute intracranial hemorrhage. The ventricles are normal in size for patient age. No midline shift or hydrocephalus. The gregory-white differentiation is maintained. Moderate arachnoid cyst within the right middle cranial fossa and small left retrocerebellar arachnoid cyst. The globes are symmetric. The calvarium is intact. The visualized paranasal sinuses and mastoid air cells are clear. IMPRESSION: 1. No acute intracranial hemorrhage. 2. Subtle curvilinear hyperattenuation within the posterior right temporal lobe has significantly decreased in conspicuity and is most compatible with a developmental venous anomaly. Please note that all CT scans at this facility use dose modulation, iterative reconstruction, and/or weight-based dosing when appropriate to reduce radiation dose to as low as reasonably achievable. Dictated by Elias Gurrola MD @ Nov 17 2020 9:35AM Signed by Dr. Elias Gurrola @ Nov 17 2020 9:43AM
[2020-11-17] MEDS ORDERED: Ibuprofen 400 MG Tab PO PRN (10:33)
[2020-11-17] MEDS ORDERED: Ondansetron 4 MG Tab.DIS PO PRN (10:34)
[2020-11-17] MEDS ORDERED: Oseltamivir 75 MG Cap PO SCH (11:45)
[2020-11-17] MEDS: Oseltamivir 75 MG Cap PO SCH ×2 (13:07→21:01)
[2020-11-17] MEDS: Lactated Ringers 1,000 ML IV SCH ×2 (13:08→21:01)
[2020-11-18] MEDS: Lactated Ringers 1,000 ML IV SCH ×4 (02:54→18:16)
[2020-11-18] MEDS: Piperacillin/Tazobactam 3.375 GM in Sodium Chloride 0.9% 50 ML IV SCH ×4 (02:55→22:50)
[2020-11-18] MEDS: Acetaminophen 500 MG Tab PO PRN ×2 (04:01→08:14)
[2020-11-18 06:42] LABS: BLOOD UREA NITROGEN,BUN 6 mg/dL (7.0-18.0); CARBON DIOXIDE,CO2 28.8 mmol/L (21.0-32.0); CHLORIDE,CL 105 mmol/L (98-107); GLUCOSE RANDOM 102 mg/dL (74-106); POTASSIUM,K 3.7 mmol/L (3.5-5.1); SODIUM,NA 142 mmol/L (136-148)
[2020-11-18] MEDS: Oseltamivir 75 MG Cap PO SCH ×2 (07:59→20:54)
--- NOTE | 2020-11-18 08:25 | PCM.PN ---
- General Info Date of Service: 11/18/20 - Review of Systems Systems Review Comment:: feeling better, reports fatigue - Patient Data Vitals - Most Recent: Last Vital Signs Temp 36.1 C 11/18/20 07:52 Pulse 69 11/18/20 07:52 Resp 18 11/18/20 07:52 BP 109/65 11/18/20 07:52 Pulse Ox 93 L 11/18/20 07:52 Weight - Most Recent: 128.1 kg I&O - Last 24 Hours: Intake & Output 11/17/20 11/18/20 11/18/20 22:59 06:59 14:59 Intake Total 950 2336 Balance 950 2336 Lab Results Last 24 Hours: Laboratory Results - last 24 hr 11/18/20 11/18/20 Range/Units 05:31 05:31 WBC 6.18 (4.0-11.0) K/uL RBC 4.46 L (4.50-5.90) M/uL Hgb 13.3 (13.0-17.0) g/dL Hct 39.6 (38.0-50.0) % MCV 88.8 (80.0-98.0) fL MCH 29.8 (27.0-32.0) pg MCHC 33.6 (31.0-37.0) g/dL RDW Std Deviation 40.3 (28.0-62.0) fl RDW Coeff of Robert 13 (11.0-15.0) % Plt Count 151 (150-400) K/uL MPV 11.30 (7.40-12.00) fL Neut % (Auto) 69.4 (48.0-80.0) % Lymph % (Auto) 16.8 (16.0-40.0) % [place] % (Auto) 11.0 (0.0-15.0) % Eos % (Auto) 2.3 (0.0-7.0) % Baso % (Auto) 0.5 (0.0-1.5) % Neut # (Auto) 4.3 (1.4-5.7) K/uL Lymph # (Auto) 1.0 (0.6-2.4) K/uL [place] # (Auto) 0.7 (0.0-0.8) K/uL Eos # (Auto) 0.1 (0.0-0.7) K/uL Baso # (Auto) 0.0 (0.0-0.1) K/uL Nucleated RBC % 0.0 /100WBC Nucleated RBCs # 0 K/uL Sodium 142 (136-148) mmol/L Potassium 3.7 (3.5-5.1) mmol/L Chloride 105 (98-107) mmol/L Carbon Dioxide 28.8 (21.0-32.0) mmol/L BUN 6 L (7.0-18.0) mg/dL Creatinine 1.1 (0.8-1.3) mg/dL Est Cr Clr Drug Dosing 100.78 mL/min Estimated GFR (MDRD) > 60.0 ml/min Glucose 102 (74-106) mg/dL Calcium 8.3 L (8.5-10.1) mg/dL Total Bilirubin 1.0 (0.2-1.0) mg/dL AST 28 (15-37) IU/L ALT 69 H (14-63) IU/L Alkaline Phosphatase 53 (46-116) U/L Total Protein 5.8 L (6.4-8.2) g/dL Albumin 3.0 L (3.4-5.0) g/dL Globulin 2.8 (2.6-4.0) g/dL Albumin/Globulin Ratio 1.1 (0.9-1.6) Garth Results Last 24 Hours: Microbiology 11/17/20 00:40 Aerobic Blood Culture - Preliminary Blood - Venous - Lab Draw NO GROWTH AFTER 1 DAY Anaerobic Blood Culture - Preliminary NO GROWTH AFTER 1 DAY 11/17/20 00:10 Aerobic Blood Culture - Preliminary Blood - Venous NO GROWTH AFTER 1 DAY Anaerobic Blood Culture - Preliminary NO GROWTH AFTER 1 DAY 11/17/20 02:12 Influenza Type A Antigen Screen - Final Nasopharyngeal Swab NEGATIVE INFLUENZA A VIRUS AG REFERENCE RANGE: NEGATIVE Influenza Type B Antigen Screen - Final NEGATIVE INFLUENZA B VIRUS AG REFERENCE RANGE: NEGATIVE Med Orders - Current: Current Medications Acetaminophen (Tylenol Extra Strength) 500 mg PO Q4H PRN PRN Reason: Fever Last Admin: 11/18/20 08:14 Dose: 500 mg Documented by: Piperacillin Sod/Tazobactam (Sod 3.375 gm/ Sodium Chloride) 50 mls @ 100 mls/hr IV Q8H [facility] Last Admin: 11/18/20 07:54 Dose: 100 mls/hr Documented by: Lactated Ringer's (Ringers, Lactated) 1,000 mls @ 150 mls/hr IV Q6H [facility] Last Admin: 11/18/20 04:03 Dose: 150 mls/hr Documented by: Ibuprofen (Motrin) 400 mg PO Q6H PRN PRN Reason: Pain Ondansetron HCl (Zofran Odt) 4 mg PO Q6H PRN PRN Reason: Nausea/Vomiting Last Admin: 11/17/20 15:24 Dose: 4 mg Documented by: Oseltamivir Phosphate (Tamiflu) 75 mg PO BID MICHELLE Last Admin: 11/18/20 07:59 Dose: 75 mg Documented by: Sodium Chloride (Saline Flush) 10 ml FLUSH ASDIRECTED PRN PRN Reason: Keep Vein Open Last Admin: 11/17/20 00:28 Dose: 10 ml Documented by: Sodium Chloride (Saline Flush) 2.5 ml FLUSH ASDIRECTED PRN PRN Reason: Keep Vein Open Last Admin: 11/17/20 00:29 Dose: 2.5 ml Documented by: Discontinued Medications Acetaminophen (Tylenol) 650 mg PO NOW ONE Stop: 11/17/20 02:59 Last Admin: 11/17/20 03:04 Dose: 650 mg Documented by: Diphenhydramine HCl (Benadryl) 25 mg IVPUSH ONETIME ONE Stop: 11/17/20 04:35 Last Admin: 11/17/20 04:39 Dose: 25 mg Documented by: Lactated Ringer's (Ringers, Lactated) 1,000 mls @ 999 mls/hr IV .BOLUS ONE Stop: 11/17/20 01:01 Last Admin: 11/17/20 00:26 Dose: 999 mls/hr Documented by: Lactated Ringer's (Ringers, Lactated) 1,000 mls @ 999 mls/hr IV .BOLUS ONE Stop: 11/17/20 01:01 Last Admin: 11/17/20 00:28 Dose: 999 mls/hr Documented by: Vancomycin HCl 2.5 gm/ (Dextrose/Water) 250 mls @ 167 mls/hr IV ONETIME ONE Stop: 11/17/20 02:26 Last Admin: 11/17/20 02:05 Dose: Not Given Documented by: Piperacillin Sod/Tazobactam (Sod 4.5 gm/ Sodium Chloride) 100 mls @ 200 mls/hr IV STAT ONE Stop: 11/17/20 01:26 Last Admin: 11/17/20 02:04 Dose: 200 mls/hr Documented by: Vancomycin HCl 2.5 gm/ Sodium (Chloride) 250 mls @ 125 mls/hr IV ONETIME ONE Stop: 11/17/20 03:59 Last Admin: 11/17/20 02:22 Dose: 125 mls/hr Documented by: Iopamidol (Isovue Multipack-370 (76%)) 100 ml IVPUSH ONETIME STA Stop: 11/17/20 02:45 Last Admin: 11/17/20 02:52 Dose: 100 ml Documented by: Oseltamivir Phosphate (Tamiflu) 75 mg PO DAILY MICHELLE Last Admin: 11/17/20 13:44 Dose: Not Given Documented by: - Exam General: Alert, Oriented Neck: Supple, Other (full range of motion, no tenderness) Cardiovascular: Regular Rate, Regular Rhythm GI/Abdominal Exam: Normal Bowel Sounds, Soft, Non-Tender Extremities: Non-Tender, No Pedal Edema Skin: Warm, Dry, Intact Neurological: No New Focal Deficit Sepsis Event Note - Evaluation Sepsis Screening Result: No Definite Risk - Focused Exam Vital Signs: Vital Signs Temp Pulse Resp BP Pulse Ox 11/18/20 07:52 36.1 C 69 18 109/65 93 L 11/18/20 04:00 37.1 C 71 18 111/43 L 93 L 11/18/20 00:00 37.1 C 75 18 139/65 95 - Problem List Review Problem List Initiated/Reviewed/Updated: Yes - Plan Plan:: 35 yo male admitted for fevers and leukocytosis. No source of infection identified, Appears to be viral like illness, could be prolonged/resurgence of COVID. Continue to treat supportively. Remains fever free this morning. Will continue to monitor and possible discharge later today.
[2020-11-19] MEDS: Lactated Ringers 1,000 ML IV SCH ×2 (00:36→06:26)
[2020-11-19] MEDS: Piperacillin/Tazobactam 3.375 GM in Sodium Chloride 0.9% 50 ML IV SCH (06:22)
[2020-11-19 06:47] LABS: BLOOD UREA NITROGEN,BUN 9 mg/dL (7.0-18.0); CARBON DIOXIDE,CO2 27.8 mmol/L (21.0-32.0); CHLORIDE,CL 105 mmol/L (98-107); GLUCOSE RANDOM 91 mg/dL (74-106); POTASSIUM,K 3.8 mmol/L (3.5-5.1); SODIUM,NA 142 mmol/L (136-148)
[2020-11-19] MEDS: Oseltamivir 75 MG Cap PO SCH (10:18)
--- NOTE | 2020-11-19 10:32 | PCM.DCSUM1 ---
<Yisel Roman - Last Filed: 11/19/20 10:32> Discharge Summary - Hospital Course HPI Initial Comments: Patient is a 35-year-old male with no significant past medical history except chronic back pain presenting yesterday to the ED with fevers and chills. Patient mentions having fevers and chills around 8 PM with temperature as high as 102. Despite using Tylenol and naproxen patient is still complaining of fatigue and malaise. Of note patient was diagnosed with COVID-19 in September 2020 but only symptoms experienced was loss of taste. Diagnosis: Stroke: No - Discharge Data Discharge Date: 11/19/20 Discharge Disposition: Home, Self-Care 01 Condition: Stable - Referral to Home Health Primary Care Physician: Calderon Matthew MD - Patient Instructions Diet: Regular Diet as Tolerated Notify Provider of: Fever, Nausea and/or Vomiting - Discharge Plan *PRESCRIPTION DRUG MONITORING PROGRAM REVIEWED*: Not Applicable *COPY OF PRESCRIPTION DRUG MONITORING REPORT IN PATIENT ALIREZA: Not Applicable Home Medications: Home Meds methocarbamoL [Methocarbamol] 1 dose PO ASDIRECTED 11/16/20 [History] Oxygen Therapy Mode: Room Air Patient Handouts: Sepsis, Diagnosis, Adult Referrals: Calderon Matthew MD [Primary Care Provider] - 11/29/20 10:00 am (Please arrive 15 minutes early wearing a facemask and bring insurance cards and photo ID.) - Discharge Summary/Plan Comment DC Time >30 min.: No Discharge Summary/Plan Comment: Patient was admitted for fever, chills, had a complete sepsis work up. Fever and leukocytosis resolved. 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 Ready for discharge, can follow up with PCP within 1 week. - Patient Data Vitals - Most Recent: Last Vital Signs Temp 97.7 F 11/19/20 07:42 Pulse 61 11/19/20 07:42 Resp 16 11/19/20 07:42 BP 108/57 L 11/19/20 07:42 Pulse Ox 94 L 11/19/20 07:42 Weight - Most Recent: 128.1 kg I&O - Last 24 hours: Intake & Output 11/18/20 11/19/20 11/19/20 22:59 06:59 14:59 Intake Total 1280 2303 Balance 1280 2303 Lab Results - Last 24 hrs: Laboratory Results - last 24 hr 11/19/20 11/19/20 Range/Units 05:33 05:33 WBC 5.77 (4.0-11.0) K/uL RBC 4.41 L (4.50-5.90) M/uL Hgb 13.1 (13.0-17.0) g/dL Hct 38.8 (38.0-50.0) % MCV 88.0 (80.0-98.0) fL MCH 29.7 (27.0-32.0) pg MCHC 33.8 (31.0-37.0) g/dL RDW Std Deviation 40.0 (28.0-62.0) fl RDW Coeff of Robert 13 (11.0-15.0) % Plt Count 148 L (150-400) K/uL MPV 11.30 (7.40-12.00) fL Neut % (Auto) 54.6 (48.0-80.0) % Lymph % (Auto) 28.6 (16.0-40.0) % Irwin % (Auto) 13.0 (0.0-15.0) % Eos % (Auto) 3.3 (0.0-7.0) % Baso % (Auto) 0.5 (0.0-1.5) % Neut # (Auto) 3.2 (1.4-5.7) K/uL Lymph # (Auto) 1.7 (0.6-2.4) K/uL Irwin # (Auto) 0.8 (0.0-0.8) K/uL Eos # (Auto) 0.2 (0.0-0.7) K/uL Baso # (Auto) 0.0 (0.0-0.1) K/uL Nucleated RBC % 0.0 /100WBC Nucleated RBCs # 0 K/uL Sodium 142 (136-148) mmol/L Potassium 3.8 (3.5-5.1) mmol/L Chloride 105 (98-107) mmol/L Carbon Dioxide 27.8 (21.0-32.0) mmol/L BUN 9 (7.0-18.0) mg/dL Creatinine 1.1 (0.8-1.3) mg/dL Est Cr Clr Drug Dosing 100.78 mL/min Estimated GFR (MDRD) > 60.0 ml/min Glucose 91 (74-106) mg/dL Calcium 8.1 L (8.5-10.1) mg/dL Total Bilirubin 1.0 (0.2-1.0) mg/dL AST 22 (15-37) IU/L ALT 56 (14-63) IU/L Alkaline Phosphatase 54 (46-116) U/L Total Protein 6.0 L (6.4-8.2) g/dL Albumin 2.9 L (3.4-5.0) g/dL Globulin 3.1 (2.6-4.0) g/dL Albumin/Globulin Ratio 0.9 (0.9-1.6) MAMADOU Results - Last 24 hrs: Microbiology 11/17/20 00:40 Aerobic Blood Culture - Preliminary Blood - Venous - Lab Draw NO GROWTH AFTER 2 DAYS Anaerobic Blood Culture - Preliminary NO GROWTH AFTER 2 DAYS 11/17/20 00:10 Aerobic Blood Culture - Preliminary Blood - Venous NO GROWTH AFTER 2 DAYS Anaerobic Blood Culture - Preliminary NO GROWTH AFTER 2 DAYS Med Orders - Current: Current Medications Acetaminophen (Tylenol Extra Strength) 500 mg PO Q4H PRN PRN Reason: Fever Last Admin: 11/18/20 08:14 Dose: 500 mg Documented by: Piperacillin Sod/Tazobactam (Sod 3.375 gm/ Sodium Chloride) 50 mls @ 100 mls/hr IV Q8H [facility] Last Admin: 11/19/20 06:22 Dose: 100 mls/hr Documented by: Lactated Ringer's (Ringers, Lactated) 1,000 mls @ 150 mls/hr IV Q6H [facility] Last Admin: 11/19/20 06:26 Dose: 150 mls/hr Documented by: Ibuprofen (Motrin) 400 mg PO Q6H PRN PRN Reason: Pain Ondansetron HCl (Zofran Odt) 4 mg PO Q6H PRN PRN Reason: Nausea/Vomiting Last Admin: 11/17/20 15:24 Dose: 4 mg Documented by: Oseltamivir Phosphate (Tamiflu) 75 mg PO BID [facility] Last Admin: 11/19/20 10:18 Dose: 75 mg Documented by: Sodium Chloride (Saline Flush) 10 ml FLUSH ASDIRECTED PRN PRN Reason: Keep Vein Open Last Admin: 11/17/20 00:28 Dose: 10 ml Documented by: Sodium Chloride (Saline Flush) 2.5 ml FLUSH ASDIRECTED PRN PRN Reason: Keep Vein Open Last Admin: 11/17/20 00:29 Dose: 2.5 ml Documented by: Discontinued Medications Acetaminophen (Tylenol) 650 mg PO NOW ONE Stop: 11/17/20 02:59 Last Admin: 11/17/20 03:04 Dose: 650 mg Documented by: Diphenhydramine HCl (Benadryl) 25 mg IVPUSH ONETIME ONE Stop: 11/17/20 04:35 Last Admin: 11/17/20 04:39 Dose: 25 mg Documented by: Lactated Ringer's (Ringers, Lactated) 1,000 mls @ 999 mls/hr IV .BOLUS ONE Stop: 11/17/20 01:01 Last Admin: 11/17/20 00:26 Dose: 999 mls/hr Documented by: Lactated Ringer's (Ringers, Lactated) 1,000 mls @ 999 mls/hr IV .BOLUS ONE Stop: 11/17/20 01:01 Last Admin: 11/17/20 00:28 Dose: 999 mls/hr Documented by: Vancomycin HCl 2.5 gm/ (Dextrose/Water) 250 mls @ 167 mls/hr IV ONETIME ONE Stop: 11/17/20 02:26 Last Admin: 11/17/20 02:05 Dose: Not Given Documented by: Piperacillin Sod/Tazobactam (Sod 4.5 gm/ Sodium Chloride) 100 mls @ 200 mls/hr IV STAT ONE Stop: 11/17/20 01:26 Last Admin: 11/17/20 02:04 Dose: 200 mls/hr Documented by: Vancomycin HCl 2.5 gm/ Sodium (Chloride) 250 mls @ 125 mls/hr IV ONETIME ONE Stop: 11/17/20 03:59 Last Admin: 11/17/20 02:22 Dose: 125 mls/hr Documented by: Iopamidol (Isovue Multipack-370 (76%)) 100 ml IVPUSH ONETIME STA Stop: 11/17/20 02:45 Last Admin: 11/17/20 02:52 Dose: 100 ml Documented by: Oseltamivir Phosphate (Tamiflu) 75 mg PO DAILY [facility] Last Admin: 11/17/20 13:44 Dose: Not Given Documented by: <CruzCaden Shana - Last Filed: 11/19/20 18:32> Discharge Summary - Referral to Home Health Primary Care Physician: Calderon Matthew MD - Patient Data Vitals - Most Recent: Last Vital Signs Temp 36.3 C 11/19/20 11:00 Pulse 69 11/19/20 11:00 Resp 16 11/19/20 11:00 BP 123/75 11/19/20 11:00 Pulse Ox 95 11/19/20 11:00 I&O - Last 24 hours: Intake & Output 11/19/20 11/19/20 11/19/20 06:59 14:59 22:59 Intake Total 2303 1200 Balance 2303 1200 Lab Results - Last 24 hrs: Laboratory Results - last 24 hr 11/19/20 11/19/20 Range/Units 05:33 05:33 WBC 5.77 (4.0-11.0) K/uL RBC 4.41 L (4.50-5.90) M/uL Hgb 13.1 (13.0-17.0) g/dL Hct 38.8 (38.0-50.0) % MCV 88.0 (80.0-98.0) fL MCH 29.7 (27.0-32.0) pg MCHC 33.8 (31.0-37.0) g/dL RDW Std Deviation 40.0 (28.0-62.0) fl RDW Coeff of Robert 13 (11.0-15.0) % Plt Count 148 L (150-400) K/uL MPV 11.30 (7.40-12.00) fL Neut % (Auto) 54.6 (48.0-80.0) % Lymph % (Auto) 28.6 (16.0-40.0) % Irwin % (Auto) 13.0 (0.0-15.0) % Eos % (Auto) 3.3 (0.0-7.0) % Baso % (Auto) 0.5 (0.0-1.5) % Neut # (Auto) 3.2 (1.4-5.7) K/uL Lymph # (Auto) 1.7 (0.6-2.4) K/uL Irwin # (Auto) 0.8 (0.0-0.8) K/uL Eos # (Auto) 0.2 (0.0-0.7) K/uL Baso # (Auto) 0.0 (0.0-0.1) K/uL Nucleated RBC % 0.0 /100WBC Nucleated RBCs # 0 K/uL Sodium 142 (136-148) mmol/L Potassium 3.8 (3.5-5.1) mmol/L Chloride 105 (98-107) mmol/L Carbon Dioxide 27.8 (21.0-32.0) mmol/L BUN 9 (7.0-18.0) mg/dL Creatinine 1.1 (0.8-1.3) mg/dL Est Cr Clr Drug Dosing 100.78 mL/min Estimated GFR (MDRD) > 60.0 ml/min Glucose 91 (74-106) mg/dL Calcium 8.1 L (8.5-10.1) mg/dL Total Bilirubin 1.0 (0.2-1.0) mg/dL AST 22 (15-37) IU/L ALT 56 (14-63) IU/L Alkaline Phosphatase 54 (46-116) U/L Total Protein 6.0 L (6.4-8.2) g/dL Albumin 2.9 L (3.4-5.0) g/dL Globulin 3.1 (2.6-4.0) g/dL Albumin/Globulin Ratio 0.9 (0.9-1.6) MAMADOU Results - Last 24 hrs: Microbiology 11/17/20 00:40 Aerobic Blood Culture - Preliminary Blood - Venous - Lab Draw NO GROWTH AFTER 2 DAYS Anaerobic Blood Culture - Preliminary NO GROWTH AFTER 2 DAYS 11/17/20 00:10 Aerobic Blood Culture - Preliminary Blood - Venous NO GROWTH AFTER 2 DAYS Anaerobic Blood Culture - Preliminary NO GROWTH AFTER 2 DAYS Med Orders - Current: Current Medications Discontinued Medications Acetaminophen (Tylenol) 650 mg PO NOW ONE Stop: 11/17/20 02:59 Last Admin: 11/17/20 03:04 Dose: 650 mg Documented by: Acetaminophen (Tylenol Extra Strength) 500 mg PO Q4H PRN PRN Reason: Fever Last Admin: 11/18/20 08:14 Dose: 500 mg Documented by: Diphenhydramine HCl (Benadryl) 25 mg IVPUSH ONETIME ONE Stop: 11/17/20 04:35 Last Admin: 11/17/20 04:39 Dose: 25 mg Documented by: Lactated Ringer's (Ringers, Lactated) 1,000 mls @ 999 mls/hr IV .BOLUS ONE Stop: 11/17/20 01:01 Last Admin: 11/17/20 00:26 Dose: 999 mls/hr Documented by: Lactated Ringer's (Ringers, Lactated) 1,000 mls @ 999 mls/hr IV .BOLUS ONE Stop: 11/17/20 01:01 Last Admin: 11/17/20 00:28 Dose: 999 mls/hr Documented by: Vancomycin HCl 2.5 gm/ (Dextrose/Water) 250 mls @ 167 mls/hr IV ONETIME ONE Stop: 11/17/20 02:26 Last Admin: 11/17/20 02:05 Dose: Not Given Documented by: Piperacillin Sod/Tazobactam (Sod 4.5 gm/ Sodium Chloride) 100 mls @ 200 mls/hr IV STAT ONE Stop: 11/17/20 01:26 Last Admin: 11/17/20 02:04 Dose: 200 mls/hr Documented by: Vancomycin HCl 2.5 gm/ Sodium (Chloride) 250 mls @ 125 mls/hr IV ONETIME ONE Stop: 11/17/20 03:59 Last Admin: 11/17/20 02:22 Dose: 125 mls/hr Documented by: Piperacillin Sod/Tazobactam (Sod 3.375 gm/ Sodium Chloride) 50 mls @ 100 mls/hr IV Q8H [facility] Last Admin: 11/19/20 06:22 Dose: 100 mls/hr Documented by: Lactated Ringer's (Ringers, Lactated) 1,000 mls @ 150 mls/hr IV Q6H [facility] Last Admin: 11/19/20 06:26 Dose: 150 mls/hr Documented by: Ibuprofen (Motrin) 400 mg PO Q6H PRN PRN Reason: Pain Iopamidol (Isovue Multipack-370 (76%)) 100 ml IVPUSH ONETIME STA Stop: 11/17/20 02:45 Last Admin: 11/17/20 02:52 Dose: 100 ml Documented by: Ondansetron HCl (Zofran Odt) 4 mg PO Q6H PRN PRN Reason: Nausea/Vomiting Last Admin: 11/17/20 15:24 Dose: 4 mg Documented by: Oseltamivir Phosphate (Tamiflu) 75 mg PO DAILY [facility] Last Admin: 11/17/20 13:44 Dose: Not Given Documented by: Oseltamivir Phosphate (Tamiflu) 75 mg PO BID [facility] Last Admin: 11/19/20 10:18 Dose: 75 mg Documented by: Sodium Chloride (Saline Flush) 10 ml FLUSH ASDIRECTED PRN PRN Reason: Keep Vein Open Last Admin: 11/17/20 00:28 Dose: 10 ml Documented by: Sodium Chloride (Saline Flush) 2.5 ml FLUSH ASDIRECTED PRN PRN Reason: Keep Vein Open Last Admin: 11/17/20 00:29 Dose: 2.5 ml Documented by: - Free Text/Narrative Note: I have seen and evaluated the patient. I have discussed findings and treatment plan with resident. I agree with the assessment and plan in the following note.
[2020-11-19 12:54] VITALS: BP 123/75; PULSE 69
== END 2020-11-18 12:30 | disposition home or self-care (01) ==
LOC: MW.ED 23:46 → MW.MS 11-17 03:16
PROVIDERS: ADMIT Internal Medicine; ATTEND Internal Medicine
DX: R50.9 Fever, unspecified (principal); D72.829 Elevated white blood cell count, unspecified; G89.29 Other chronic pain; F17.210 Nicotine dependence, cigarettes, uncomplicated; M54.9 Dorsalgia, unspecified; Q28.3 Other malformations of cerebral vessels; Z86.19 Personal history of other infectious and parasitic diseases; Z79.899 Other long term (current) drug therapy; Z88.8 Allergy status to other drugs, medicaments and biological substances
CPT/HCPCS: 36415; 70450; 71046; 71260; 74177; 80053; 81001; 83605; 84484; 85025; 85610; 87040; 87804; 93005; 96365; 96366; 96367; 96375; 96376; 99285; A9270; G0378; J1200; J2543; J3370; J7050; J7120; Q9967

== ENCOUNTER 2021-08-01 11:10 | Emergency (ER) | payer OTHER ==
[2021-08-01] MEDS ORDERED: Sodium Chloride 0.9% 2.5 ML Syringe FLUSH PRN (11:12)
[2021-08-01] MEDS ORDERED: Sodium Chloride 0.9% 1,000 ML IV ONE (11:12)
[2021-08-01] MEDS ORDERED: Sodium Chloride 0.9% 10 ML Syringe FLUSH PRN (11:12)
--- NOTE | 2021-08-01 13:23 | EDM.PDOC ---
ED HPI GENERAL MEDICAL PROBLEM - General Chief Complaint: General Stated Complaint: FATIGUE, SYNCOPD Time Seen by Provider: 08/01/21 12:50 Source of Information: Reports: Patient History Limitations: Reports: No Limitations - History of Present Illness INITIAL COMMENTS - FREE TEXT/NARRATIVE: 36-year-old male no relevant past medical history presents for syncopal episode and feeling unwell. Patient states that 4 days ago he began to feel generalized weakness at work. His boss sent him home and he went home to lay down. After getting up from a nap he states that he felt dizzy and passed out. He is uncertain how long he was out. He does not remember falling. Over the last 4 days he has noted continued generalized weakness and malaise. He notes chills and feeling hot at times. He has not checked his temperature. He denies any cough or shortness of breath. He states that he has some "sinus issues" that he gets every year around this time that he attributes to seasonal allergies. He denies loss of taste or smell. Denies chest pain. - Related Data Allergies Allergy/AdvReac Type Severity Reaction Status Date / Time naltrexone Allergy Hives Verified 08/01/21 12:55 Home Meds: Home Meds methocarbamoL [Methocarbamol] 1 dose PO ASDIRECTED 11/16/20 [History] Past Medical History - Past Health History Medical/Surgical History: Denies Medical/Surgical History HEENT History: Reports: Impaired Vision, Other (See Below) Other HEENT History: wears glasses Musculoskeletal History: Reports: Back Pain, Chronic, Other (See Below) Other Musculoskeletal History: tendonitis, R shoulder Dermatologic History: Reports: Other (See Below) Other Dermatologic History: sutures L wrist/base of thumb - Infectious Disease History Infectious Disease History: Reports: Influenza - Past Surgical History Musculoskeletal Surgical History: Reports: None Social & Family History - Family History Family Medical History: No Pertinent Family History - Caffeine Use Caffeine Use: Reports: Energy Drinks ED ROS GENERAL - Review of Systems Review Of Systems: Comprehensive ROS is negative, except as noted in HPI. ED EXAM, GENERAL - Physical Exam Exam: See Below Exam Limited By: No Limitations General Appearance: Alert, WD/WN, No Apparent Distress Ears: Hearing Grossly Normal Throat/Mouth: Normal Voice, No Airway Compromise Head: Atraumatic, Normocephalic Neck: Normal Inspection Respiratory/Chest: No Respiratory Distress, Lungs Clear, Normal Breath Sounds, No Accessory Muscle Use Cardiovascular: Normal Peripheral Pulses, Regular Rate, Rhythm GI/Abdominal: Soft, Non-Tender Extremities: Normal Inspection Neurological: Alert, Normal Cognition Psychiatric: Normal Affect, Normal Mood Skin Exam: Warm, Dry, Intact, Normal Color #1 Interpretation EKG Date: 08/01/21 Time: 12:57 Rhythm: NSR Rate (Beats/Min): 53 [place]: Normal P-Wave: Present QRS: Normal ST-T: Normal QT: Normal [place]/PQ Interval: 144 Comparison: NA - No Prior EKG EKG Interpretation Comments: bradycardia to 53, otherwise unremarkable Course - Vital Signs Last Recorded V/S: Last Vital Signs Temp 98.1 F 08/01/21 12:54 Pulse 74 08/01/21 12:54 Resp 18 08/01/21 12:54 BP 142/86 H 08/01/21 12:54 Pulse Ox 95 08/01/21 12:54 - Orders/Labs/Meds Orders: Active Orders 24 hr Category Date Time Status Sodium Chloride 0.9% [Saline Flush] Med 08/01/21 11:12 Active 10 ml FLUSH ASDIRECTED PRN Sodium Chloride 0.9% [Saline Flush] Med 08/01/21 11:12 Active 2.5 ml FLUSH ASDIRECTED PRN Saline Lock Insert [OM.PC] Stat Oth 08/01/21 11:12 Ordered Medication Orders Sodium Chloride (Sodium Chloride 0.9% 10 Ml Syringe) 10 ml FLUSH ASDIRECTED PRN PRN Reason: Keep Vein Open Last Admin: 08/01/21 12:57 Dose: 10 ml Documented by: KAE Sodium Chloride (Sodium Chloride 0.9% 2.5 Ml Syringe) 2.5 ml FLUSH ASDIRECTED PRN PRN Reason: Keep Vein Open Labs: Laboratory Tests 08/01/21 08/01/21 08/01/21 Range/Units 12:59 12:59 12:59 WBC 7.85 (4.0-11.0) K/uL RBC 5.09 (4.50-5.90) M/uL Hgb 15.6 (13.0-17.0) g/dL Hct 43.8 (38.0-50.0) % MCV 86.1 (80.0-98.0) fL MCH 30.6 (27.0-32.0) pg MCHC 35.6 (31.0-37.0) g/dL RDW Std Deviation 39.1 (28.0-62.0) fl RDW Coeff of Robert 13 (11.0-15.0) % Plt Count 197 (150-400) K/uL MPV 11.20 (7.40-12.00) fL Neut % (Auto) 57.7 (48.0-80.0) % Lymph % (Auto) 28.4 (16.0-40.0) % Lane % (Auto) 10.3 (0.0-15.0) % Eos % (Auto) 3.1 (0.0-7.0) % Baso % (Auto) 0.5 (0.0-1.5) % Neut # (Auto) 4.5 (1.4-5.7) K/uL Lymph # (Auto) 2.2 (0.6-2.4) K/uL Lane # (Auto) 0.8 (0.0-0.8) K/uL Eos # (Auto) 0.2 (0.0-0.7) K/uL Baso # (Auto) 0.0 (0.0-0.1) K/uL Nucleated RBC % 0.0 /100WBC Nucleated RBCs # 0 K/uL Sodium 138 (136-148) mmol/L Potassium 4.3 (3.5-5.1) mmol/L Chloride 100 (98-107) mmol/L Carbon Dioxide 29.8 (21.0-32.0) mmol/L BUN 10 (7.0-18.0) mg/dL Creatinine 1.2 (0.8-1.3) mg/dL Est Cr Clr Drug Dosing 91.51 mL/min Estimated GFR (MDRD) > 60.0 ml/min Glucose 89 (74-106) mg/dL Calcium 8.7 (8.5-10.1) mg/dL Total Bilirubin 1.3 H (0.2-1.0) mg/dL AST 30 (15-37) IU/L ALT 58 (14-63) IU/L Alkaline Phosphatase 76 (46-116) U/L Troponin I < 0.050 (0.000-0.056) ng/mL Total Protein 7.3 (6.4-8.2) g/dL Albumin 4.1 (3.4-5.0) g/dL Globulin 3.2 (2.6-4.0) g/dL Albumin/Globulin Ratio 1.3 (0.9-1.6) SARS-CoV-2 RNA (ZACK) (NEGATIVE) 08/01/21 Range/Units 13:34 WBC (4.0-11.0) K/uL RBC (4.50-5.90) M/uL Hgb (13.0-17.0) g/dL Hct (38.0-50.0) % MCV (80.0-98.0) fL MCH (27.0-32.0) pg MCHC (31.0-37.0) g/dL RDW Std Deviation (28.0-62.0) fl RDW Coeff of Robert (11.0-15.0) % Plt Count (150-400) K/uL MPV (7.40-12.00) fL Neut % (Auto) (48.0-80.0) % Lymph % (Auto) (16.0-40.0) % Lane % (Auto) (0.0-15.0) % Eos % (Auto) (0.0-7.0) % Baso % (Auto) (0.0-1.5) % Neut # (Auto) (1.4-5.7) K/uL Lymph # (Auto) (0.6-2.4) K/uL Lane # (Auto) (0.0-0.8) K/uL Eos # (Auto) (0.0-0.7) K/uL Baso # (Auto) (0.0-0.1) K/uL Nucleated RBC % /100WBC Nucleated RBCs # K/uL Sodium (136-148) mmol/L Potassium (3.5-5.1) mmol/L Chloride (98-107) mmol/L Carbon Dioxide (21.0-32.0) mmol/L BUN (7.0-18.0) mg/dL Creatinine (0.8-1.3) mg/dL Est Cr Clr Drug Dosing mL/min Estimated GFR (MDRD) ml/min Glucose (74-106) mg/dL Calcium (8.5-10.1) mg/dL Total Bilirubin (0.2-1.0) mg/dL AST (15-37) IU/L ALT (14-63) IU/L Alkaline Phosphatase (46-116) U/L Troponin I (0.000-0.056) ng/mL Total Protein (6.4-8.2) g/dL Albumin (3.4-5.0) g/dL Globulin (2.6-4.0) g/dL Albumin/Globulin Ratio (0.9-1.6) SARS-CoV-2 RNA (ZACK) NEGATIVE (NEGATIVE) Meds: Medications Generic Name Dose Route Start Last Admin Trade Name Freq PRN Reason Stop Dose Admin Sodium Chloride 10 ml 08/01/21 11:12 08/01/21 12:57 Sodium Chloride 0.9% 10 Ml Syringe FLUSH 10 ml ASDIRECTED PRN Administration Keep Vein Open Sodium Chloride 2.5 ml 08/01/21 11:12 Sodium Chloride 0.9% 2.5 Ml Syringe FLUSH ASDIRECTED PRN Keep Vein Open Discontinued Medications Generic Name Dose Route Start Last Admin Trade Name Freq PRN Reason Stop Dose Admin Sodium Chloride 1,000 mls @ 999 mls/hr 08/01/21 11:12 08/01/21 12:57 Normal Saline IV 08/01/21 12:12 999 mls/hr STAT ONE Administration - Re-Assessments/Exams Free Text/Narrative Re-Assessment/Exam: 08/01/21 14:35 Labs are unremarkable. Covid testing is negative. Will refer patient to primary care physician for further work-up of malaise. Departure - Departure Time of Disposition: 14:35 Disposition: Home, Self-Care 01 Condition: Good Clinical Impression: Syncope Qualifiers: Syncope type: unspecified Qualified Code(s): R55 - Syncope and collapse - Discharge Information Instructions: Near-Syncope Referrals: Calderon Matthew MD [Primary Care Provider] - Forms: ED Department Discharge Additional Instructions: Your work-up in the emergency department is unremarkable. Your lab results, EKG, chest x-ray were all within normal limits. You should follow-up with your primary care physician for further work-up of your fatigue and episode of passing out. The following information is given to patients seen in the emergency department who are being discharged to home. This information is to outline your options for follow-up care. We provide all patients seen in our emergency department with a follow-up referral. The need for follow-up, as well as the timing and circumstances, are variable depending upon the specifics of your emergency department visit. If you don't have a primary care physician on staff, we will provide you with a referral. We always advise you to contact your personal physician following an emergency department visit to inform them of the circumstance of the visit and for follow-up with them and/or the need for any referrals to a consulting specialist. The emergency department will also refer you to a specialist when appropriate. This referral assures that you have the opportunity for follow-up care with a specialist. All of these measure are taken in an effort to provide you with optimal care, which includes your follow-up. Under all circumstances we always encourage you to contact your private physician who remains a resource for coordinating your care. When calling for follow-up care, please make the office aware that this follow-up is from your recent emergency room visit. If for any reason you are refused follow-up, please contact the [facility] Emergency Department at and asked to speak to the emergency department charge nurse. Please follow up with your primary care physician. If you do not have a primary care physician, see below: [facility] [address] [place] [id number] [id number] [facility] [address] [place] [id number] Sepsis Event Note (ED) - Evaluation Sepsis Screening Result: No Definite Risk - Focused Exam Vital Signs: Vital Signs Temp Pulse Resp BP Pulse Ox 08/01/21 12:54 98.1 F 74 18 142/86 H 95
[2021-08-01 13:49] LABS: BLOOD UREA NITROGEN,BUN 10 mg/dL (7.0-18.0); CARBON DIOXIDE,CO2 29.8 mmol/L (21.0-32.0); CHLORIDE,CL 100 mmol/L (98-107); GLUCOSE RANDOM 89 mg/dL (74-106); POTASSIUM,K 4.3 mmol/L (3.5-5.1); SODIUM,NA 138 mmol/L (136-148)
--- NOTE | 2021-08-01 14:19 | CR ---
INDICATION: Syncope TECHNIQUE: Chest 1 views COMPARISON: 11/17/2020 FINDINGS: Cardiovascular and mediastinum: Heart size and vasculature are normal in caliber and appearance. Lungs and pleural spaces: Lungs are clear. No sign of infiltrate or mass. No sign of pleural effusion. No pneumothorax. Bones and soft tissues: No significant findings. IMPRESSION: No acute findings and no significant changes from the prior exam. Dictated by Carlos Damon MD @ 08/01/2021 2:18:13 PM (Electronically Signed)
[2021-08-01 15:17] VITALS: BP 109/65; PULSE 60
== END 2021-08-01 15:21 | disposition home or self-care (01) ==
LOC: MW.ED 11:10
DX: R55 Syncope and collapse (principal); Z88.5 Allergy status to narcotic agent; Z20.822 Contact with and (suspected) exposure to COVID-19
CPT/HCPCS: 36415; 71045; 80053; 84484; 85025; 87635; 93005; 99285; J7030; U0002

== ENCOUNTER 2022-11-23 23:51 | Emergency (ER) | payer OTHER ==
[2022-11-23] MEDS ORDERED: LORazepam 2 MG/ML SDV IVPUSH ONE (23:59)
[2022-11-23] MEDS ORDERED: Sodium Chloride 0.9% 1,000 ML IV ONE (23:59)
[2022-11-23] MEDS ORDERED: Aspirin 81 MG Tab.Chew PO ONE (23:59)
[2022-11-24 00:42] LABS: CARBON DIOXIDE,CO2 29.8 mmol/L (21.0-32.0); POTASSIUM,K 3.5 mmol/L (3.5-5.1)
[2022-11-24 00:55] LABS: CORONAVIRUS COVID-19 NAA NEGATIVE (NEGATIVE); INFLUENZA A NAA NEGATIVE (NEGATIVE); INFLUENZA B NAA NEGATIVE (NEGATIVE)
[2022-11-24 02:57] VITALS: BP 119/67; PULSE 67
== END 2022-11-24 02:55 | disposition home or self-care (01) ==
LOC: MW.ED 23:51
DX: R07.9 Chest pain, unspecified (principal); Z88.8 Allergy status to other drugs, medicaments and biological substances; Z20.822 Contact with and (suspected) exposure to COVID-19
CPT/HCPCS: 0240U; 36415; 71045; 80053; 83735; 84484; 85025; 85379; 85610; 85730; 93005; 96361; 96374; 99285; A9270; J2060; J7030